=== PATIENT | female | born 1940 | race African-American/Black ===

== ENCOUNTER 2017-06-04 17:49 | Inpatient (IN) | payer MEDICARE, BC ==
[~2017-06-04] VITALS: Ht 165.1 cm; Wt 55.4 kg
[2017-06-04] MEDS ORDERED: FURO20TA4 PO (17:56)
[2017-06-04] MEDS ORDERED: TRAM50TA3 PO (17:56)
[2017-06-04] MEDS ORDERED: ONDANSETRON HCL 4MG/2ML VIAL IV STA (18:13)
[2017-06-04] MEDS ORDERED: SODIUM CHLORIDE 0.9% 1,000 ML IV ONE (18:13)
[2017-06-04] MEDS ORDERED: MORPHINE SULFATE 4 MG/ML CPJ (NOT FOR IM USE) IV STA (18:13)
[2017-06-04] MEDS ORDERED: LORAZEPAM 2MG/ML CPJ IV ONE ×2 (18:45→22:00)
[2017-06-04 18:50] LABS: CLARITY URINE CLEAR (CLEAR); COLOR URINE YELLOW (YELLOW); KETONES URINE NEGATIVE (NEGATIVE); LEUKOCYTE ESTERASE URINE NEGATIVE (NEGATIVE); NITRITE URINE NEGATIVE (NEGATIVE); OCCULT BLOOD URINE TRACE (NEGATIVE); PH URINE 7.5 (4.5-8.0); PROTEIN URINE NEGATIVE (NEGATIVE); SPECIFIC GRAVITY URINE 1.016 (1.005-1.030); UROBILINOGEN URINE 0.2 E.U./dL (0.2-1.0)
[2017-06-04] MEDS: NALOXONE HCL 1 MG/ML 2ML VIAL IV ONE ×2 (18:56→19:12)
[2017-06-04] MEDS ORDERED: ETOMIDATE 2MG/ML 10ML VIAL IV ONE ×3 (19:00→21:45)
[2017-06-04] MEDS ORDERED: SUCCINYLCHOLINE CHLORIDE 200MG/10ML VIAL IV ONE ×2 (19:00→21:00)
[2017-06-04 19:01] LABS: BASOPHILS % 0.5 % (0.0-2.0); EOSINOPHILS % 0.7 % (0.0-5.0); HEMATOCRIT. 37.1 % (36.0-48.0); HEMOGLOBIN. 11.5 g/dL (12.0-16.0); LYMPHOCYTES % 7.7 % (20.0-50.0); MEAN CORPUSCULAR HEMOGLOBIN 28.2 pg (28.0-32.0); MEAN CORPUSCULAR VOLUME 90.4 fL (81.0-99.0); MEAN PLATELET VOLUME 7.9 fl (7.4-10.4); MONOCYTES % 5.8 % (2.0-8.0); NEUTROPHILS % 85.3 % (40.0-76.0); PLATELET 212 x1000/uL (130-400); RED CELL DISTRIBUTION WIDTH 17.4 % (11.6-14.6)
[2017-06-04 19:08] LABS: *AMPHETAMINES SCREEN URINE NEGATIVE (NEGATIVE); *BARBITURATES SCREEN URINE NEGATIVE (NEGATIVE); *BENZODIAZEPINES SCREEN URINE PRESUMTIVE POSITIVE (NEGATIVE); *COCAINE SCREEN URINE NEGATIVE (NEGATIVE); CANNABINOID URINE SCREEN NEGATIVE (NEGATIVE); METHADONE URINE SCREEN NEGATIVE (NEGATIVE); OPIATES URINE SCREEN NEGATIVE (NEGATIVE); PHENCYCLIDINE URINE SCREEN NEGATIVE (NEGATIVE)
[2017-06-04 19:09] LABS: AMMONIA 47 uMol/L (<32)
[2017-06-04 19:12] LABS: CHLORIDE 102 mEq/L (98-107); ETHANOL BLOOD < 10 mg/dL
[2017-06-04 19:16] LABS: TROPONIN I 0.03 ng/mL (0.00-0.04)
[2017-06-04 20:07] LABS: INR 0.9; PROTHROMBIN TIME 9.9 sec (9.4-11.6)
[2017-06-04 20:47] LABS: BG BASE EXCESS 14.8 mmol/L (-2.0-2.0); BG BILEVEL POS AIRWAY PRESSURE 15/5; BG CARBOXYHEMOGLOBIN 0.9 % (0.5-1.5); BG DEOXYHEMOGLOBIN 8.5 % (0.0-5.0); BG FRACTION INSPIRED OXYGEN 50; BG HCO3 ACT 48.5 mmol/L (22.0-26.0); BG METHEMOGLOBIN 0.3 % (0.0-1.5); BG OXYGEN SATURATION 91.4 % (92.0-98.5); BG OXYHEMOGLOBIN 90.3 % (94.0-97.0); BG PCO2 139.4 mmHg (35.0-45.0); BG PH 7.159 (7.350-7.450); BG PO2 73.3 mmHg (75.0-100.0); BG SAMPLE SITE RIGHT RADIAL; BG TOTAL HEMOGLOBIN 11.8 g/dL (12.0-18.0); BG VENT MODE MASK - BIPAP; BG VENT RATE 20 set
[2017-06-04] MEDS ORDERED: PROPOFOL 10MG/ML 100ML 100 ML IV ONE (21:00)
[2017-06-04] MEDS ORDERED: LORAZEPAM 2MG/ML CPJ ONE (21:27)
[2017-06-04 22:09] LABS: BG BASE EXCESS 9.2 mmol/L (-2.0-2.0); BG CARBOXYHEMOGLOBIN 0.6 % (0.5-1.5); BG DEOXYHEMOGLOBIN 4.4 % (0.0-5.0); BG FRACTION INSPIRED OXYGEN 40; BG HCO3 ACT 35.8 mmol/L (22.0-26.0); BG METHEMOGLOBIN 0.2 % (0.0-1.5); BG OXYGEN SATURATION 95.6 % (92.0-98.5); BG OXYHEMOGLOBIN 94.8 % (94.0-97.0); BG PCO2 60.1 mmHg (35.0-45.0); BG PH 7.393 (7.350-7.450); BG PO2 76.3 mmHg (75.0-100.0); BG SAMPLE SITE RIGHT RADIAL; BG TIDAL VOLUME(mL) 500 mL; BG TOTAL HEMOGLOBIN 10.8 g/dL (12.0-18.0); BG VENT MODE VENT - A/C; BG VENT RATE 16 set
[2017-06-04] MEDS ORDERED: MORPHINE SULFATE 4 MG/ML CPJ (NOT FOR IM USE) IV PRN (22:15)
[2017-06-04] MEDS ORDERED: CLONIDINE 0.1MG TABLET PO PRN (22:15)
[2017-06-04] MEDS ORDERED: NA PHOS,M-B/NA PHOS,DI-BA ENEMA 118ML PR PRN (22:15)
[2017-06-04] MEDS ORDERED: ONDANSETRON HCL 4MG/2ML VIAL IV PRN (22:15)
[2017-06-04] MEDS ORDERED: GUAIFENESIN 200MG/10ML SUGAR FREE UDC PO PRN (22:15)
[2017-06-04] MEDS ORDERED: IPRATROPIUM/ALBUTEROL 0.5-3(2.5)MG/3ML NEB INH PRN (22:15)
[2017-06-04] MEDS ORDERED: DOCUSATE SODIUM 100MG CAPSULE PO PRN (22:15)
[2017-06-04] MEDS ORDERED: ACETAMINOPHEN 325MG TABLET PO PRN (22:15)
[2017-06-04] MEDS ORDERED: MAGNESIUM/ALUMINUM HYDROXIDE/SIMETHICONE 30ML UDC PO PRN (22:15)
[2017-06-04] MEDS ORDERED: MIDAZOLAM HCL 50 MG in DEXTROSE 5% WATER 40 ML IV PRN (22:15)
[2017-06-04] MEDS ORDERED: DEXTROSE 50% WATER 50ML SYRINGE IV PRN (22:30)
[2017-06-05] VITALS (34 sets, daily range): BP systolic 133–169; BP diastolic 65–93
[2017-06-05] MEDS: DEXT 5%/0.45% NACL 1000ML 1,000 ML IV SCH ×3 (02:09→23:53)
[2017-06-05] MEDS: MIDAZOLAM HCL 50 MG in DEXTROSE 5% WATER 40 ML IV PRN ×3 (02:10→14:46)
[2017-06-05] MEDS: LEVOFLOXACIN 500MG PREMIX 100 ML IV SCH (03:02)
[2017-06-05] MEDS: IPRATROPIUM/ALBUTEROL 0.5-3(2.5)MG/3ML NEB HHN SCH ×4 (04:53→20:37)
[2017-06-05] MEDS: BLOOD SUGAR DIAGNOSTIC STRIP TEST SCH ×4 (05:50→23:55)
[2017-06-05] MEDS: INSULIN LISPRO 100 UNITS/ML SUBCUT SCH ×4 (05:50→23:55)
[2017-06-05] MEDS ORDERED: METHYLPREDNISOLONE SOD SUCC 125 MG/2 ML VIAL IV SCH (06:00)
[2017-06-05 06:11] LABS: BASOPHILS % 0.4 % (0.0-2.0); EOSINOPHILS % 0.1 % (0.0-5.0); HEMATOCRIT. 28.8 % (36.0-48.0); LYMPHOCYTES % 10.1 % (20.0-50.0); MEAN CORPUSCULAR HEMOGLOBIN 28.1 pg (28.0-32.0); MEAN CORPUSCULAR VOLUME 90.2 fL (81.0-99.0); MEAN PLATELET VOLUME 8.3 fl (7.4-10.4); MONOCYTES % 9.9 % (2.0-8.0); NEUTROPHILS % 79.5 % (40.0-76.0); PLATELET 161 x1000/uL (130-400)
[2017-06-05 06:18] LABS: CHLORIDE 105 mEq/L (98-107); PHOSPHORUS 2.2 mg/dL (2.5-4.9)
[2017-06-05] MEDS ORDERED: BLOOD SUGAR DIAGNOSTIC STRIP TEST SCH (07:50)
[2017-06-05 08:29] LABS: BG BASE EXCESS 7.2 mmol/L (-2.0-2.0); BG CARBOXYHEMOGLOBIN 0.3 % (0.5-1.5); BG DEOXYHEMOGLOBIN 3.4 % (0.0-5.0); BG FRACTION INSPIRED OXYGEN 40; BG HCO3 ACT 32.5 mmol/L (22.0-26.0); BG METHEMOGLOBIN 0.3 % (0.0-1.5); BG OXYGEN SATURATION 96.6 % (92.0-98.5); BG PCO2 49.8 mmHg (35.0-45.0); BG PH 7.432 (7.350-7.450); BG PO2 87.3 mmHg (75.0-100.0); BG SAMPLE SITE LEFT RADIAL; BG TIDAL VOLUME(mL) 500 mL; BG TOTAL HEMOGLOBIN 9.4 g/dL (12.0-18.0); BG VENT MODE VENT - A/C; BG VENT RATE 16 set
[2017-06-05] MEDS ORDERED: IPRATROPIUM/ALBUTEROL 0.5-3(2.5)MG/3ML NEB HHN PRN (09:00)
[2017-06-05] MEDS ORDERED: ENOXAPARIN 40MG/0.4ML SYR SUBCUT SCH (09:00)
[2017-06-05] MEDS ORDERED: FAMOTIDINE 20MG/2ML VIAL IV SCH (09:00)
[2017-06-05] MEDS: METOPROLOL TARTRATE 25MG TABLET PO SCH ×2 (09:08→20:32)
[2017-06-05] MEDS ORDERED: IOHEXOL-350 100 ML BOTTLE ONE (11:35)
[2017-06-05] MEDS: LORAZEPAM 2MG/ML CPJ IV PRN (12:12)
[2017-06-05] MEDS: FENTANYL CITRATE/PF 500 MCG in SODIUM CHLORIDE 0.9% 40 ML IV PRN ×2 (12:16→19:57)
[2017-06-05 12:40] LABS: PARTIAL THROMBOPLASTIN TIME 28.2 sec (23.4-31.0); PROTHROMBIN TIME 10.7 sec (9.4-11.6)
[2017-06-05] MEDS: PANTOPRAZOLE SODIUM 40 MG/VIAL IV SCH (12:45)
[2017-06-05 12:47] LABS: CREATINE KINASE MB FRACTION 0.5 ng/mL (0.5-3.6); TROPONIN I 0.02 ng/mL (0.00-0.04)
[2017-06-05] MEDS: BUDESONIDE 0.5MG/2ML NEB HHN SCH ×2 (14:41→20:37)
[2017-06-05] MEDS ORDERED: POTASSIUM PHOS,M-BASIC-D-BASIC 10 MMOL in DEXT 5% WATER 246.6667 ML IV NR (18:30)
[2017-06-05] MEDS: DIPHENHYDRAMINE 50MG/ML VIAL IV PRN (19:56)
[2017-06-06] VITALS (41 sets, daily range): BP systolic 85–159; BP diastolic 46–91
[2017-06-06] MEDS: DIPHENHYDRAMINE 50MG/ML VIAL IV PRN (02:00)
[2017-06-06] MEDS: IPRATROPIUM/ALBUTEROL 0.5-3(2.5)MG/3ML NEB HHN SCH ×4 (02:09→20:26)
[2017-06-06] MEDS: LORAZEPAM 2MG/ML CPJ IV PRN ×2 (03:36→13:54)
[2017-06-06] MEDS: LEVOFLOXACIN 500MG PREMIX 100 ML IV SCH (04:38)
[2017-06-06] MEDS: FENTANYL CITRATE/PF 500 MCG in SODIUM CHLORIDE 0.9% 40 ML IV PRN ×3 (04:38→21:00)
[2017-06-06] MEDS: MIDAZOLAM HCL 50 MG in DEXTROSE 5% WATER 40 ML IV PRN ×3 (04:39→20:57)
[2017-06-06] MEDS: INSULIN LISPRO 100 UNITS/ML SUBCUT SCH ×3 (06:03→17:29)
[2017-06-06] MEDS: BLOOD SUGAR DIAGNOSTIC STRIP TEST SCH ×3 (06:05→17:30)
[2017-06-06 06:10] LABS: BASOPHILS % 0.8 % (0.0-2.0); EOSINOPHILS % 0.5 % (0.0-5.0); HEMOGLOBIN. 8.4 g/dL (12.0-16.0); LYMPHOCYTES % 17.2 % (20.0-50.0); MEAN CORPUSCULAR HEMOGLOBIN 28.7 pg (28.0-32.0); MEAN CORPUSCULAR VOLUME 88.7 fL (81.0-99.0); MEAN PLATELET VOLUME 8.3 fl (7.4-10.4); MONOCYTES % 10.4 % (2.0-8.0); NEUTROPHILS % 71.1 % (40.0-76.0); PLATELET 152 x1000/uL (130-400); RED BLOOD CELL COUNT 2.93 mill/uL (4.2-5.4); RED CELL DISTRIBUTION WIDTH 17.1 % (11.6-14.6)
[2017-06-06 06:16] LABS: CHLORIDE 100 mEq/L (98-107)
[2017-06-06] MEDS: BUDESONIDE 0.5MG/2ML NEB HHN SCH ×2 (08:14→20:28)
[2017-06-06 08:23] LABS: BG BASE EXCESS 7.3 mmol/L (-2.0-2.0); BG CARBOXYHEMOGLOBIN 0.5 % (0.5-1.5); BG DEOXYHEMOGLOBIN 2.8 % (0.0-5.0); BG FRACTION INSPIRED OXYGEN 40; BG HCO3 ACT 32.7 mmol/L (22.0-26.0); BG METHEMOGLOBIN 0.3 % (0.0-1.5); BG OXYGEN SATURATION 97.2 % (92.0-98.5); BG OXYHEMOGLOBIN 96.4 % (94.0-97.0); BG PCO2 51.6 mmHg (35.0-45.0); BG PO2 98.7 mmHg (75.0-100.0); BG SAMPLE SITE LEFT RADIAL; BG TIDAL VOLUME(mL) 500 mL; BG TOTAL HEMOGLOBIN 8.7 g/dL (12.0-18.0); BG VENT MODE VENT - A/C; BG VENT RATE 14 set
[2017-06-06] MEDS: PANTOPRAZOLE SODIUM 40 MG/VIAL IV SCH (09:46)
[2017-06-06] MEDS: METOPROLOL TARTRATE 25MG TABLET PO SCH (09:55)
[2017-06-06] MEDS: DEXT 5%/0.45% NACL 1000ML 1,000 ML IV SCH ×2 (09:56→18:00)
[2017-06-06] MEDS ORDERED: KCL 20MEQ/100ML PREMIX 100 ML IV NR (10:00)
[2017-06-06] MEDS ORDERED: POTASSIUM CHLORIDE 20MEQ/PACKET PO NR (10:30)
[2017-06-06] MEDS: ENOXAPARIN 40MG/0.4ML SYR SUBCUT SCH (12:47)
[2017-06-06] MEDS ORDERED: INSULIN GLARGINE UD 100 UNITS/ML SYR SUBCUT SCH (13:00)
[2017-06-06 16:17] LABS: T4 FREE 0.82 ng/dL (0.76-1.46)
[2017-06-06] MEDS: DILTIAZEM HCL 30MG TABLET PO SCH (17:30)
[2017-06-06] MEDS ORDERED: ACETAMINOPHEN 650MG/20.3ML UDC ONE (21:18)
[2017-06-07] VITALS (43 sets, daily range): BP systolic 98–132; BP diastolic 46–81
[2017-06-07] MEDS: BLOOD SUGAR DIAGNOSTIC STRIP TEST SCH ×4 (00:14→18:00)
[2017-06-07] MEDS: INSULIN LISPRO 100 UNITS/ML SUBCUT SCH ×4 (00:19→18:59)
[2017-06-07] MEDS: DILTIAZEM HCL 30MG TABLET PO SCH ×5 (00:20→23:59)
[2017-06-07] MEDS: IPRATROPIUM/ALBUTEROL 0.5-3(2.5)MG/3ML NEB HHN SCH ×4 (01:47→20:30)
[2017-06-07] MEDS: FENTANYL CITRATE/PF 500 MCG in SODIUM CHLORIDE 0.9% 40 ML IV PRN (03:15)
[2017-06-07] MEDS: MIDAZOLAM HCL 50 MG in DEXTROSE 5% WATER 40 ML IV PRN (03:15)
[2017-06-07] MEDS: DEXT 5%/0.45% NACL 1000ML 1,000 ML IV SCH ×2 (04:51→23:15)
[2017-06-07 05:32] LABS: BASOPHILS % 0.8 % (0.0-2.0); EOSINOPHILS % 0.9 % (0.0-5.0); HEMATOCRIT. 26.2 % (36.0-48.0); HEMOGLOBIN. 8.3 g/dL (12.0-16.0); LYMPHOCYTES % 9.8 % (20.0-50.0); MEAN CORPUSCULAR HEMOGLOBIN 28.3 pg (28.0-32.0); MEAN CORPUSCULAR VOLUME 89.2 fL (81.0-99.0); MEAN PLATELET VOLUME 8.2 fl (7.4-10.4); MONOCYTES % 13.2 % (2.0-8.0); NEUTROPHILS % 75.3 % (40.0-76.0); PLATELET 141 x1000/uL (130-400); RED BLOOD CELL COUNT 2.94 mill/uL (4.2-5.4); RED CELL DISTRIBUTION WIDTH 17.5 % (11.6-14.6)
[2017-06-07] MEDS ORDERED: SODIUM CHLORIDE 0.9% IV PRN (06:00)
[2017-06-07] MEDS ORDERED: FENTANYL CITRATE IV PRN (06:00)
[2017-06-07] MEDS ORDERED: FENTANYL CITRATE/PF 1,000 MCG in SODIUM CHLORIDE 0.9% 80 ML IV PRN (06:00)
[2017-06-07] MEDS ORDERED: MIDAZOLAM HCL 50 MG in SODIUM CHLORIDE 0.9% 90 ML IV PRN (06:00)
[2017-06-07] MEDS ORDERED: MIDAZOLAM HCL 100 MG in SODIUM CHLORIDE 0.9% 80 ML IV PRN (06:00)
[2017-06-07] MEDS: LEVOFLOXACIN 250MG PREMIX 50 ML IV SCH (06:04)
[2017-06-07] MEDS: ACETAMINOPHEN 650MG/20.3ML UDC GT PRN ×3 (06:34→16:43)
[2017-06-07 07:55] LABS: BG BASE EXCESS 6.3 mmol/L (-2.0-2.0); BG CARBOXYHEMOGLOBIN 0.9 % (0.5-1.5); BG DEOXYHEMOGLOBIN 3.5 % (0.0-5.0); BG FRACTION INSPIRED OXYGEN 40; BG HCO3 ACT 32.2 mmol/L (22.0-26.0); BG METHEMOGLOBIN 0.4 % (0.0-1.5); BG OXYGEN SATURATION 96.5 % (92.0-98.5); BG OXYHEMOGLOBIN 95.2 % (94.0-97.0); BG PCO2 53.6 mmHg (35.0-45.0); BG PH 7.396 (7.350-7.450); BG SAMPLE SITE LEFT RADIAL; BG TIDAL VOLUME(mL) 500 mL; BG TOTAL HEMOGLOBIN 9.3 g/dL (12.0-18.0); BG VENT MODE VENT - A/C; BG VENT RATE 14 set
[2017-06-07] MEDS: BUDESONIDE 0.5MG/2ML NEB HHN SCH ×2 (07:58→20:30)
[2017-06-07] MEDS: PANTOPRAZOLE SODIUM 40 MG/VIAL IV SCH (08:58)
[2017-06-07] MEDS: MIDAZOLAM HCL 100 MG in SODIUM CHLORIDE 0.9% 80 ML IV PRN ×2 (09:25→23:38)
[2017-06-07] MEDS: INSULIN GLARGINE UD 100 UNITS/ML SYR SUBCUT SCH (09:34)
[2017-06-07 09:45] LABS: CHLORIDE 98 mEq/L (98-107); PHOSPHORUS 3.2 mg/dL (2.5-4.9); TROPONIN I 0.02 ng/mL (0.00-0.04)
[2017-06-07] MEDS: ENOXAPARIN 40MG/0.4ML SYR SUBCUT SCH (12:08)
[2017-06-07 12:26] LABS: AMMONIA 28 uMol/L (<32)
[2017-06-07] MEDS: FENTANYL CITRATE/PF 1,000 MCG in SODIUM CHLORIDE 0.9% 80 ML IV PRN (16:43)
[2017-06-08] VITALS (45 sets, daily range): BP systolic 94–144; BP diastolic 18–93
[2017-06-08] MEDS: DEXT 5%/0.45% NACL 1000ML 1,000 ML IV SCH ×3 (00:03→17:50)
[2017-06-08] MEDS: INSULIN LISPRO 100 UNITS/ML SUBCUT SCH ×4 (00:08→17:55)
[2017-06-08] MEDS: ACETAMINOPHEN 650MG/20.3ML UDC GT PRN ×4 (00:12→17:51)
[2017-06-08] MEDS: LORAZEPAM 2MG/ML CPJ IV PRN (01:23)
[2017-06-08] MEDS: IPRATROPIUM/ALBUTEROL 0.5-3(2.5)MG/3ML NEB HHN SCH ×4 (03:09→20:22)
[2017-06-08] MEDS: FENTANYL CITRATE/PF 1,000 MCG in SODIUM CHLORIDE 0.9% 80 ML IV PRN ×2 (04:02→12:47)
[2017-06-08] MEDS: BLOOD SUGAR DIAGNOSTIC STRIP TEST SCH ×4 (06:00→17:30)
[2017-06-08] MEDS: DILTIAZEM HCL 30MG TABLET PO SCH ×3 (06:00→17:55)
[2017-06-08] MEDS: LEVOFLOXACIN 250MG PREMIX 50 ML IV SCH (06:16)
[2017-06-08] MEDS: PANTOPRAZOLE SODIUM 40 MG/VIAL IV SCH (08:19)
[2017-06-08] MEDS: BUDESONIDE 0.5MG/2ML NEB HHN SCH (08:34)
[2017-06-08] MEDS: MIDAZOLAM HCL 100 MG in SODIUM CHLORIDE 0.9% 80 ML IV PRN ×2 (09:57→18:21)
[2017-06-08 10:10] LABS: BG BASE EXCESS 4.4 mmol/L (-2.0-2.0); BG CARBOXYHEMOGLOBIN 1.1 % (0.5-1.5); BG FRACTION INSPIRED OXYGEN 40; BG METHEMOGLOBIN 0.2 % (0.0-1.5); BG OXYGEN SATURATION 95.9 % (92.0-98.5); BG OXYHEMOGLOBIN 94.7 % (94.0-97.0); BG PCO2 51.4 mmHg (35.0-45.0); BG PH 7.384 (7.350-7.450); BG PO2 88.4 mmHg (75.0-100.0); BG SAMPLE SITE RIGHT BRACHIAL; BG TIDAL VOLUME(mL) 500 mL; BG TOTAL HEMOGLOBIN 7.8 g/dL (12.0-18.0); BG VENT MODE VENT - A/C; BG VENT RATE 14 set
[2017-06-08] MEDS: INSULIN GLARGINE UD 100 UNITS/ML SYR SUBCUT SCH (10:33)
[2017-06-08 10:43] LABS: BASOPHILS % 0.4 % (0.0-2.0); EOSINOPHILS % 0.4 % (0.0-5.0); HEMATOCRIT. 22.8 % (36.0-48.0); HEMOGLOBIN. 7.1 g/dL (12.0-16.0); LYMPHOCYTES % 7.1 % (20.0-50.0); MEAN CORPUSCULAR HEMOGLOBIN 27.8 pg (28.0-32.0); MEAN PLATELET VOLUME 8.6 fl (7.4-10.4); MONOCYTES % 8.3 % (2.0-8.0); NEUTROPHILS % 83.8 % (40.0-76.0); PLATELET 154 x1000/uL (130-400); RED BLOOD CELL COUNT 2.56 mill/uL (4.2-5.4); RED CELL DISTRIBUTION WIDTH 16.9 % (11.6-14.6)
[2017-06-08 11:30] LABS: CHLORIDE 98 mEq/L (98-107)
[2017-06-08] MEDS: LACTULOSE 20G/30ML UDC PO SCH ×2 (12:16→22:44)
[2017-06-08] MEDS: ENOXAPARIN 40MG/0.4ML SYR SUBCUT SCH (12:17)
[2017-06-08 15:00] LABS: KETONES URINE NEGATIVE (NEGATIVE); LEUKOCYTE ESTERASE URINE 3+ (NEGATIVE); NITRITE URINE NEGATIVE (NEGATIVE); OCCULT BLOOD URINE 3+ (NEGATIVE); PROTEIN URINE 1+ (NEGATIVE); SPECIFIC GRAVITY URINE 1.025 (1.005-1.030)
[2017-06-08] MEDS ORDERED: VANCOMYCIN 1250MG in DEXTROSE 5% WATER 250ML IV SCH (15:00)
[2017-06-08 15:12] LABS: CLARITY URINE CLOUDY (CLEAR); COLOR URINE YELLOW (YELLOW)
[2017-06-08] MEDS: METRONIDAZOLE 500MG TABLET PO SCH ×2 (16:23→22:43)
[2017-06-08 17:23] LABS: CREATINE KINASE 316 IU/L (26-192)
[2017-06-09] VITALS (58 sets, daily range): BP systolic 97–152; BP diastolic 24–89
[2017-06-09] MEDS: BLOOD SUGAR DIAGNOSTIC STRIP TEST SCH ×5 (00:47→23:28)
[2017-06-09] MEDS: INSULIN LISPRO 100 UNITS/ML SUBCUT SCH ×5 (00:54→23:28)
[2017-06-09] MEDS: DILTIAZEM HCL 30MG TABLET PO SCH ×5 (00:59→21:32)
[2017-06-09] MEDS: ACETAMINOPHEN 650MG/20.3ML UDC GT PRN ×3 (01:12→20:21)
[2017-06-09] MEDS: IPRATROPIUM/ALBUTEROL 0.5-3(2.5)MG/3ML NEB HHN SCH ×4 (02:06→20:40)
[2017-06-09] MEDS: VANCOMYCIN 750 MG PREMIX 150 ML IV SCH ×2 (03:00→18:51)
[2017-06-09] MEDS: FENTANYL CITRATE/PF 1,000 MCG in SODIUM CHLORIDE 0.9% 80 ML IV PRN (04:35)
[2017-06-09] MEDS: DEXT 5%/0.45% NACL 1000ML 1,000 ML IV SCH ×3 (04:51→22:34)
[2017-06-09 05:48] LABS: MEAN CORPUSCULAR HEMOGLOBIN 28.1 pg (28.0-32.0); MEAN CORPUSCULAR VOLUME 88.5 fL (81.0-99.0); MEAN PLATELET VOLUME 8.2 fl (7.4-10.4); PLATELET 167 x1000/uL (130-400); RED BLOOD CELL COUNT 2.32 mill/uL (4.2-5.4); RED CELL DISTRIBUTION WIDTH 17.3 % (11.6-14.6)
[2017-06-09 05:50] LABS: PARTIAL THROMBOPLASTIN TIME 38.5 sec (23.4-31.0); PROTHROMBIN TIME 10.3 sec (9.4-11.6)
[2017-06-09 06:02] LABS: HEMATOCRIT. 20.5 % (36.0-48.0); HEMOGLOBIN. 6.5 g/dL (12.0-16.0)
[2017-06-09 06:20] LABS: CHLORIDE 96 mEq/L (98-107)
[2017-06-09] MEDS: LACTULOSE 20G/30ML UDC PO SCH ×3 (06:54→21:38)
[2017-06-09] MEDS: LEVOFLOXACIN 250MG PREMIX 50 ML IV SCH (06:55)
[2017-06-09 08:07] LABS: PLATELET ESTIMATE NORMAL
[2017-06-09] MEDS: METRONIDAZOLE 500MG TABLET PO SCH ×2 (09:07→20:21)
[2017-06-09] MEDS: PANTOPRAZOLE SODIUM 40 MG/VIAL IV SCH (09:07)
[2017-06-09] MEDS: MIDAZOLAM HCL 100 MG in SODIUM CHLORIDE 0.9% 80 ML IV PRN (09:08)
[2017-06-09 09:57] LABS: BG BASE EXCESS 7.8 mmol/L (-2.0-2.0); BG DEOXYHEMOGLOBIN 5.2 % (0.0-5.0); BG FRACTION INSPIRED OXYGEN 40; BG HCO3 ACT 33.9 mmol/L (22.0-26.0); BG METHEMOGLOBIN 0.5 % (0.0-1.5); BG OXYGEN SATURATION 94.7 % (92.0-98.5); BG OXYHEMOGLOBIN 93.3 % (94.0-97.0); BG PCO2 58.3 mmHg (35.0-45.0); BG PH 7.382 (7.350-7.450); BG SAMPLE SITE RIGHT RADIAL; BG TIDAL VOLUME(mL) 500 mL; BG TOTAL HEMOGLOBIN 7.7 g/dL (12.0-18.0); BG VENT MODE VENT - A/C; BG VENT RATE 14 set
[2017-06-09] MEDS: INSULIN GLARGINE UD 100 UNITS/ML SYR SUBCUT SCH (11:06)
[2017-06-09] MEDS ORDERED: VANCOMYCIN HCL 500 MG/VIAL ONE (16:25)
[2017-06-09 17:39] LABS: HEMATOCRIT 31.3 % (36.0-48.0); HEMOGLOBIN 10.2 g/dL (12.0-16.0)
[2017-06-09] MEDS ORDERED: ALBUMIN HUMAN 12.5G/250ML (5%) IV ONE (18:00)
[2017-06-09] MEDS ORDERED: BACITRACIN ZINC 15GM TUBE TOP ONE (18:10)
[2017-06-09] MEDS ORDERED: BUPIVACAINE HCL 0.5% (5MG/ML) 50ML ONE (18:39)
[2017-06-09] MEDS ORDERED: SKIN ADHESIVE 0.7 GM EA TOP ONE (18:39)
[2017-06-09 19:32] LABS: FOLIC ACID (FOLATE) SERUM 9.9 ng/mL (>5.38)
[2017-06-10] VITALS (64 sets, daily range): BP systolic 80–149; BP diastolic 40–122
[2017-06-10] MEDS: DILTIAZEM HCL 30MG TABLET PO SCH ×4 (00:34→17:56)
[2017-06-10] MEDS: FENTANYL CITRATE/PF 1,000 MCG in SODIUM CHLORIDE 0.9% 80 ML IV PRN ×2 (01:41→20:23)
[2017-06-10] MEDS: MIDAZOLAM HCL 100 MG in SODIUM CHLORIDE 0.9% 80 ML IV PRN ×2 (02:09→17:56)
[2017-06-10] MEDS: VANCOMYCIN 750 MG PREMIX 150 ML IV SCH (02:24)
[2017-06-10] MEDS: BLOOD SUGAR DIAGNOSTIC STRIP TEST SCH ×4 (05:27→23:49)
[2017-06-10] MEDS: INSULIN LISPRO 100 UNITS/ML SUBCUT SCH ×3 (05:33→18:00)
[2017-06-10] MEDS: LACTULOSE 20G/30ML UDC PO SCH ×3 (05:35→22:28)
[2017-06-10] MEDS: LEVOFLOXACIN 250MG PREMIX 50 ML IV SCH (05:35)
[2017-06-10 05:38] LABS: HEMATOCRIT. 29.4 % (36.0-48.0); MEAN CORPUSCULAR HEMOGLOBIN 28.9 pg (28.0-32.0); MEAN CORPUSCULAR VOLUME 91.5 fL (81.0-99.0); MEAN PLATELET VOLUME 7.9 fl (7.4-10.4); PLATELET 140 x1000/uL (130-400); RED BLOOD CELL COUNT 3.21 mill/uL (4.2-5.4); RED CELL DISTRIBUTION WIDTH 16.8 % (11.6-14.6)
[2017-06-10 06:15] LABS: CHLORIDE 98 mEq/L (98-107)
[2017-06-10 06:17] LABS: HEMOGLOBIN. 9.3 g/dL (12.0-16.0)
[2017-06-10] MEDS: IPRATROPIUM/ALBUTEROL 0.5-3(2.5)MG/3ML NEB HHN SCH ×3 (08:21→20:22)
[2017-06-10] MEDS: METRONIDAZOLE 500MG TABLET PO SCH ×2 (09:09→22:28)
[2017-06-10] MEDS: PANTOPRAZOLE SODIUM 40 MG/VIAL IV SCH (09:09)
[2017-06-10] MEDS: ACETAMINOPHEN 650MG/20.3ML UDC GT PRN ×2 (09:09→22:28)
[2017-06-10] MEDS: INSULIN GLARGINE UD 100 UNITS/ML SYR SUBCUT SCH (09:53)
[2017-06-10] MEDS: VANCOMYCIN 1 G PREMIX 200 ML IV SCH ×2 (11:18→20:20)
[2017-06-10] MEDS ORDERED: LIDOCAINE HCL 1% 20ML VIAL (Pyxis) INJ ONE (11:40)
[2017-06-10 11:45] LABS: PLATELET ESTIMATE NORMAL
[2017-06-10] MEDS ORDERED: AMIKACIN 500MG in SODIUM CHLORIDE 0.9% 100ML IV SCH (17:00)
[2017-06-10 20:51] LABS: TOTAL IRON BINDING CAPACITY 332 ug/dL (250-450)
[2017-06-10] MEDS: IRON SUCROSE COMPLEX 100 MG/5 ML ML IV SCH (23:25)
[2017-06-11] VITALS (86 sets, daily range): BP systolic 81–127; BP diastolic 45–75
[2017-06-11] MEDS: INSULIN LISPRO 100 UNITS/ML SUBCUT SCH ×6 (00:17→23:32)
[2017-06-11] MEDS: IPRATROPIUM/ALBUTEROL 0.5-3(2.5)MG/3ML NEB HHN SCH ×4 (01:41→20:35)
[2017-06-11] MEDS: VANCOMYCIN 1 G PREMIX 200 ML IV SCH ×3 (02:48→18:54)
[2017-06-11] MEDS: MIDAZOLAM HCL 100 MG in SODIUM CHLORIDE 0.9% 80 ML IV PRN (05:43)
[2017-06-11 05:44] LABS: HEMATOCRIT. 27.2 % (36.0-48.0); HEMOGLOBIN. 8.6 g/dL (12.0-16.0); MEAN CORPUSCULAR HEMOGLOBIN 28.4 pg (28.0-32.0); MEAN CORPUSCULAR VOLUME 89.6 fL (81.0-99.0); MEAN PLATELET VOLUME 7.8 fl (7.4-10.4); PLATELET 276 x1000/uL (130-400); RED BLOOD CELL COUNT 3.04 mill/uL (4.2-5.4); RED CELL DISTRIBUTION WIDTH 16.8 % (11.6-14.6)
[2017-06-11 05:49] LABS: CHLORIDE 98 mEq/L (98-107)
[2017-06-11] MEDS: BLOOD SUGAR DIAGNOSTIC STRIP TEST SCH ×4 (06:00→23:23)
[2017-06-11] MEDS: DILTIAZEM HCL 30MG TABLET PO SCH ×4 (06:00→23:04)
[2017-06-11] MEDS: LACTULOSE 20G/30ML UDC PO SCH ×3 (06:00→21:29)
[2017-06-11] MEDS: ACETAMINOPHEN 650MG/20.3ML UDC GT PRN (06:16)
[2017-06-11] MEDS ORDERED: POTASSIUM CHLORIDE INJ 40 MEQ in DEXT 5% WATER 250 ML IV NR (08:00)
[2017-06-11] MEDS: METRONIDAZOLE 500MG TABLET PO SCH ×2 (09:00→20:22)
[2017-06-11 09:50] LABS: PLATELET ESTIMATE NORMAL
[2017-06-11] MEDS: DEXT 5%/0.45% NACL KCL 10MEQ/L 1,000 ML IV SCH (10:08)
[2017-06-11] MEDS: PANTOPRAZOLE SODIUM 40 MG/VIAL IV SCH (10:11)
[2017-06-11] MEDS: INSULIN GLARGINE UD 100 UNITS/ML SYR SUBCUT SCH (10:44)
[2017-06-11] MEDS: NYSTATIN 100,000 UNITS/ML 5ML UDC SSP SCH ×3 (16:28→23:30)
[2017-06-11] MEDS: AMIKACIN 500MG in SODIUM CHLORIDE 0.9% 100ML IV SCH ×2 (17:00→17:07)
[2017-06-11] MEDS: PROPOFOL 10MG/ML 100ML 100 ML IV PRN (19:38)
[2017-06-11] MEDS: IRON SUCROSE COMPLEX 100 MG/5 ML ML IV SCH (20:57)
[2017-06-12] VITALS (69 sets, daily range): BP systolic 71–145; BP diastolic 33–89
[2017-06-12] MEDS: IPRATROPIUM/ALBUTEROL 0.5-3(2.5)MG/3ML NEB HHN SCH ×4 (02:11→20:36)
[2017-06-12] MEDS: VANCOMYCIN 1 G PREMIX 200 ML IV SCH ×3 (02:42→17:47)
[2017-06-12] MEDS: DEXT 5%/0.45% NACL KCL 10MEQ/L 1,000 ML IV SCH (05:00)
[2017-06-12] MEDS: DILTIAZEM HCL 30MG TABLET PO SCH (05:14)
[2017-06-12] MEDS: BLOOD SUGAR DIAGNOSTIC STRIP TEST SCH ×3 (05:14→17:50)
[2017-06-12] MEDS: LACTULOSE 20G/30ML UDC PO SCH ×3 (05:14→21:09)
[2017-06-12] MEDS: NYSTATIN 100,000 UNITS/ML 5ML UDC SSP SCH ×3 (05:20→17:53)
[2017-06-12] MEDS: INSULIN LISPRO 100 UNITS/ML SUBCUT SCH ×4 (05:21→23:37)
[2017-06-12] MEDS: PANTOPRAZOLE SODIUM 40 MG/VIAL IV SCH (08:05)
[2017-06-12] MEDS: PROPOFOL 10MG/ML 100ML 100 ML IV PRN (08:05)
[2017-06-12] MEDS: METRONIDAZOLE 500MG TABLET PO SCH ×2 (09:00→21:00)
[2017-06-12 09:04] LABS: HEMATOCRIT. 27.9 % (36.0-48.0); HEMOGLOBIN. 8.8 g/dL (12.0-16.0); MEAN CORPUSCULAR HEMOGLOBIN 28.1 pg (28.0-32.0); MEAN CORPUSCULAR VOLUME 89.1 fL (81.0-99.0); MEAN PLATELET VOLUME 7.4 fl (7.4-10.4); PLATELET 350 x1000/uL (130-400); RED BLOOD CELL COUNT 3.13 mill/uL (4.2-5.4); RED CELL DISTRIBUTION WIDTH 16.9 % (11.6-14.6)
[2017-06-12 09:16] LABS: CHLORIDE 99 mEq/L (98-107)
[2017-06-12 09:36] LABS: PLATELET ESTIMATE NORMAL
[2017-06-12 09:37] LABS: BG BASE EXCESS 5.2 mmol/L (-2.0-2.0); BG CARBOXYHEMOGLOBIN 0.4 % (0.5-1.5); BG HCO3 ACT 31.3 mmol/L (22.0-26.0); BG METHEMOGLOBIN 0.3 % (0.0-1.5); BG OXYHEMOGLOBIN 94.3 % (94.0-97.0); BG PCO2 55.2 mmHg (35.0-45.0); BG PH 7.372 (7.350-7.450); BG PO2 76.9 mmHg (75.0-100.0); BG SAMPLE SITE RIGHT BRACHIAL; BG TIDAL VOLUME(mL) 500 mL; BG TOTAL HEMOGLOBIN 9.3 g/dL (12.0-18.0); BG VENT MODE VENT - SIMV; BG VENT RATE 10 set
[2017-06-12] MEDS: INSULIN GLARGINE UD 100 UNITS/ML SYR SUBCUT SCH (10:05)
[2017-06-12] MEDS ORDERED: SODIUM CHLORIDE 0.9% 250 ML IV SCH (12:35)
[2017-06-12] MEDS: ENOXAPARIN 40MG/0.4ML SYR SUBCUT SCH (13:21)
[2017-06-12] MEDS ORDERED: SODIUM CHLORIDE 0.9% 500 ML IV SCH (15:15)
[2017-06-12] MEDS: FENTANYL CITRATE/PF 500 MCG in SODIUM CHLORIDE 0.9% 40 ML IV PRN ×2 (15:19→20:47)
[2017-06-12] MEDS: DEXT 5%/0.9% NACL KCL 20MEQ/L 1,000 ML IV SCH (16:49)
[2017-06-12] MEDS: AMIKACIN 500MG in SODIUM CHLORIDE 0.9% 100ML IV SCH (17:02)
[2017-06-12] MEDS ORDERED: MIDAZOLAM HCL 50 MG in DEXTROSE 5% WATER 40 ML IV PRN (19:00)
[2017-06-12] MEDS ORDERED: ACETAMINOPHEN 650MG SUPP PR NR (20:15)
[2017-06-12] MEDS ORDERED: ACETAMINOPHEN 650MG SUPP PR PRN (20:27)
[2017-06-13] VITALS (59 sets, daily range): BP systolic 76–138; BP diastolic 20–69
[2017-06-13] MEDS: FENTANYL CITRATE/PF 1,000 MCG in SODIUM CHLORIDE 0.9% 80 ML IV PRN ×2 (00:02→17:17)
[2017-06-13] MEDS: NYSTATIN 100,000 UNITS/ML 5ML UDC SSP SCH ×4 (00:28→17:18)
[2017-06-13] MEDS: DEXT 5%/0.9% NACL KCL 20MEQ/L 1,000 ML IV SCH ×4 (02:33→20:44)
[2017-06-13] MEDS: IPRATROPIUM/ALBUTEROL 0.5-3(2.5)MG/3ML NEB HHN SCH ×4 (02:42→19:54)
[2017-06-13] MEDS: INSULIN LISPRO 100 UNITS/ML SUBCUT SCH ×3 (05:01→17:15)
[2017-06-13] MEDS: AMIKACIN 500MG in SODIUM CHLORIDE 0.9% 100ML IV SCH (05:01)
[2017-06-13] MEDS: BLOOD SUGAR DIAGNOSTIC STRIP TEST SCH ×4 (05:02→17:15)
[2017-06-13] MEDS: LACTULOSE 20G/30ML UDC PO SCH (05:02)
[2017-06-13] MEDS: VANCOMYCIN 1 G PREMIX 200 ML IV SCH (05:02)
[2017-06-13 06:02] LABS: HEMATOCRIT. 24.2 % (36.0-48.0); HEMOGLOBIN. 7.5 g/dL (12.0-16.0); MEAN CORPUSCULAR HEMOGLOBIN 27.8 pg (28.0-32.0); MEAN CORPUSCULAR VOLUME 89.9 fL (81.0-99.0); MEAN PLATELET VOLUME 7.3 fl (7.4-10.4); PLATELET 356 x1000/uL (130-400); RED BLOOD CELL COUNT 2.69 mill/uL (4.2-5.4)
[2017-06-13 07:13] LABS: PLATELET ESTIMATE NORMAL
[2017-06-13] MEDS: METRONIDAZOLE 500MG TABLET PO SCH (08:20)
[2017-06-13] MEDS: ENOXAPARIN 40MG/0.4ML SYR SUBCUT SCH (08:30)
[2017-06-13] MEDS: PANTOPRAZOLE SODIUM 40 MG/VIAL IV SCH (08:36)
[2017-06-13] MEDS ORDERED: SODIUM CHLORIDE 0.9% 500 ML IV NR (09:30)
[2017-06-13] MEDS ORDERED: LORAZEPAM 2MG/ML CPJ IV NR (09:43)
[2017-06-13] MEDS: INSULIN GLARGINE UD 100 UNITS/ML SYR SUBCUT SCH (09:48)
[2017-06-13 10:21] LABS: PHOSPHORUS 2.5 mg/dL (2.5-4.9)
[2017-06-13 10:51] LABS: BG BASE EXCESS -0.1 mmol/L (-2.0-2.0); BG CARBOXYHEMOGLOBIN 0.8 % (0.5-1.5); BG DEOXYHEMOGLOBIN 6.4 % (0.0-5.0); BG FRACTION INSPIRED OXYGEN 50; BG HCO3 ACT 27.4 mmol/L (22.0-26.0); BG METHEMOGLOBIN 0.4 % (0.0-1.5); BG OXYGEN SATURATION 93.5 % (92.0-98.5); BG OXYHEMOGLOBIN 92.4 % (94.0-97.0); BG PCO2 61.8 mmHg (35.0-45.0); BG PH 7.265 (7.350-7.450); BG PO2 77.1 mmHg (75.0-100.0); BG PRESSURE SUPPORT 8; BG SAMPLE SITE LEFT RADIAL; BG TOTAL HEMOGLOBIN 8.6 g/dL (12.0-18.0); BG VENT MODE VENT - CPAP
[2017-06-13 12:26] LABS: BG BASE EXCESS -0.1 mmol/L (-2.0-2.0); BG CARBOXYHEMOGLOBIN 0.5 % (0.5-1.5); BG DEOXYHEMOGLOBIN 2.9 % (0.0-5.0); BG FRACTION INSPIRED OXYGEN 50; BG HCO3 ACT 25.8 mmol/L (22.0-26.0); BG METHEMOGLOBIN 0.4 % (0.0-1.5); BG OXYGEN SATURATION 97.1 % (92.0-98.5); BG OXYHEMOGLOBIN 96.2 % (94.0-97.0); BG PCO2 48.4 mmHg (35.0-45.0); BG PH 7.345 (7.350-7.450); BG PO2 97.8 mmHg (75.0-100.0); BG PRESSURE SUPPORT 8; BG SAMPLE SITE LEFT BRACHIAL; BG TIDAL VOLUME(mL) 500 mL; BG TOTAL HEMOGLOBIN 9.3 g/dL (12.0-18.0); BG VENT MODE VENT - SIMV; BG VENT RATE 14 set
[2017-06-13] MEDS ORDERED: METRONIDAZOLE 500 MG PREMIX 100 ML IV SCH (13:00)
[2017-06-13] MEDS ORDERED: AMIKACIN SULFATE 300 MG in SODIUM CHLORIDE 0.9% 100 ML IV SCH (17:00)
[2017-06-13] MEDS: MEROPENEM 1,000 MG in SODIUM CHLORIDE 0.9% 100 ML IV SCH (17:16)
[2017-06-13] MEDS: MIDAZOLAM HCL 100 MG in SODIUM CHLORIDE 0.9% 80 ML IV PRN (21:06)
[2017-06-14] VITALS (66 sets, daily range): BP systolic 91–154; BP diastolic 16–76
[2017-06-14] MEDS: NYSTATIN 100,000 UNITS/ML 5ML UDC SSP SCH ×4 (00:20→17:24)
[2017-06-14] MEDS: IPRATROPIUM/ALBUTEROL 0.5-3(2.5)MG/3ML NEB HHN SCH ×4 (01:59→20:22)
[2017-06-14] MEDS: MEROPENEM 1,000 MG in SODIUM CHLORIDE 0.9% 100 ML IV SCH ×2 (04:51→16:01)
[2017-06-14] MEDS: DEXT 5%/0.9% NACL KCL 20MEQ/L 1,000 ML IV SCH ×2 (04:51→15:42)
[2017-06-14 05:42] LABS: HEMATOCRIT. 21.2 % (36.0-48.0); MEAN CORPUSCULAR HEMOGLOBIN 28.2 pg (28.0-32.0); MEAN CORPUSCULAR VOLUME 89.5 fL (81.0-99.0); MEAN PLATELET VOLUME 6.6 fl (7.4-10.4); PLATELET 389 x1000/uL (130-400); RED BLOOD CELL COUNT 2.36 mill/uL (4.2-5.4); RED CELL DISTRIBUTION WIDTH 17.1 % (11.6-14.6)
[2017-06-14] MEDS: BLOOD SUGAR DIAGNOSTIC STRIP TEST SCH ×4 (06:00→17:16)
[2017-06-14] MEDS: INSULIN LISPRO 100 UNITS/ML SUBCUT SCH ×4 (06:00→17:17)
[2017-06-14 06:13] LABS: HEMOGLOBIN. 6.7 g/dL (12.0-16.0)
[2017-06-14] MEDS: VANCOMYCIN 1250MG in DEXTROSE 5% WATER 250ML IV SCH (06:20)
[2017-06-14 07:01] LABS: PLATELET ESTIMATE NORMAL
[2017-06-14] MEDS: PANTOPRAZOLE SODIUM 40 MG/VIAL IV SCH (08:12)
[2017-06-14] MEDS: INSULIN GLARGINE UD 100 UNITS/ML SYR SUBCUT SCH (09:01)
[2017-06-14] MEDS: FENTANYL CITRATE/PF 1,000 MCG in SODIUM CHLORIDE 0.9% 80 ML IV PRN ×2 (10:09→22:29)
[2017-06-14 11:23] LABS: BG BASE EXCESS 1.6 mmol/L (-2.0-2.0); BG DEOXYHEMOGLOBIN 9.9 % (0.0-5.0); BG HCO3 ACT 28.6 mmol/L (22.0-26.0); BG METHEMOGLOBIN 0.4 % (0.0-1.5); BG OXYHEMOGLOBIN 88.7 % (94.0-97.0); BG PCO2 59.7 mmHg (35.0-45.0); BG PH 7.299 (7.350-7.450); BG PO2 59.6 mmHg (75.0-100.0); BG SAMPLE SITE RIGHT RADIAL; BG TIDAL VOLUME(mL) 500 mL; BG TOTAL HEMOGLOBIN 8.6 g/dL (12.0-18.0); BG VENT MODE VENT - SIMV; BG VENT RATE 6 set
[2017-06-14 16:55] LABS: HEMATOCRIT 28.9 % (36.0-48.0); HEMOGLOBIN 8.8 g/dL (12.0-16.0)
[2017-06-15] VITALS (50 sets, daily range): BP systolic 86–122; BP diastolic 45–73
[2017-06-15] MEDS: NYSTATIN 100,000 UNITS/ML 5ML UDC SSP SCH ×4 (00:17→17:07)
[2017-06-15] MEDS: VANCOMYCIN 1250MG in DEXTROSE 5% WATER 250ML IV SCH ×2 (00:17→17:07)
[2017-06-15] MEDS: BLOOD SUGAR DIAGNOSTIC STRIP TEST SCH ×4 (00:17→17:06)
[2017-06-15] MEDS: IPRATROPIUM/ALBUTEROL 0.5-3(2.5)MG/3ML NEB HHN SCH ×4 (01:26→20:23)
[2017-06-15] MEDS: DEXT 5%/0.9% NACL KCL 20MEQ/L 1,000 ML IV SCH ×3 (01:27→15:13)
[2017-06-15] MEDS: MIDAZOLAM HCL 100 MG in SODIUM CHLORIDE 0.9% 80 ML IV PRN (03:44)
[2017-06-15] MEDS: MEROPENEM 1,000 MG in SODIUM CHLORIDE 0.9% 100 ML IV SCH ×2 (05:15→16:35)
[2017-06-15 05:29] LABS: HEMATOCRIT 22.6 % (36.0-48.0); HEMOGLOBIN 7.1 g/dL (12.0-16.0); MEAN CORPUSCULAR HEMOGLOBIN 28.7 pg (28.0-32.0); MEAN CORPUSCULAR VOLUME 90.8 fL (81.0-99.0); PLATELET 444 x1000/uL (130-400); RED BLOOD CELL COUNT 2.49 mill/uL (4.2-5.4)
[2017-06-15] MEDS: INSULIN LISPRO 100 UNITS/ML SUBCUT SCH ×4 (05:32→17:06)
[2017-06-15 06:48] LABS: BG BASE EXCESS 0.4 mmol/L (-2.0-2.0); BG CARBOXYHEMOGLOBIN 1.6 % (0.5-1.5); BG DEOXYHEMOGLOBIN 3.9 % (0.0-5.0); BG HCO3 ACT 27.2 mmol/L (22.0-26.0); BG OXYHEMOGLOBIN 94.5 % (94.0-97.0); BG PCO2 55.3 mmHg (35.0-45.0); BG PH 7.309 (7.350-7.450); BG SAMPLE SITE RIGHT RADIAL; BG TIDAL VOLUME(mL) 500 mL; BG TOTAL HEMOGLOBIN 9.1 g/dL (12.0-18.0); BG VENT MODE VENT - A/C; BG VENT RATE 12 set
[2017-06-15] MEDS: PANTOPRAZOLE SODIUM 40 MG/VIAL IV SCH (08:23)
[2017-06-15] MEDS: FENTANYL CITRATE/PF 1,000 MCG in SODIUM CHLORIDE 0.9% 80 ML IV PRN ×2 (09:45→21:54)
[2017-06-15] MEDS: INSULIN GLARGINE UD 100 UNITS/ML SYR SUBCUT SCH (09:52)
[2017-06-15] MEDS ORDERED: BISACODYL 10MG SUPP PR PRN (10:45)
[2017-06-15] MEDS ORDERED: SODIUM CHLORIDE 0.9% 1,000 ML IV NR (11:15)
[2017-06-15 11:35] LABS: TOTAL IRON BINDING CAPACITY 140 ug/dL (250-450)
[2017-06-15] MEDS ORDERED: SODIUM BICARBONATE 50 MEQ in DEXTROSE 5% WATER 1,000 ML IV ONE ×3 (12:30)
[2017-06-15] MEDS ORDERED: IOHEXOL-350 100 ML BOTTLE ONE (14:01)
[2017-06-15] MEDS: IRON SUCROSE COMPLEX 100 MG/5 ML ML IV SCH (15:49)
[2017-06-15] MEDS ORDERED: BIMA2.5D4 EACHEYE (17:32)
[2017-06-15] MEDS ORDERED: VALS160T2 PO (17:32)
[2017-06-15] MEDS ORDERED: AZOPT BOTHEYE (17:32)
[2017-06-15] MEDS ORDERED: SODI15DR6 OP (17:32)
[2017-06-15] MEDS ORDERED: GLIP10TA10 PO (17:32)
[2017-06-15] MEDS ORDERED: DILT240C92 PO (17:32)
[2017-06-15] MEDS ORDERED: SULFACETAMIDE SODIUM 10% OPHTH DROPS 15ML RIGHTEYE SCH (18:00)
[2017-06-15] MEDS: CIPROFLOXACIN 0.3% OPHTH SOLN 2.5ML RIGHTEYE SCH (20:08)
[2017-06-16] VITALS (57 sets, daily range): BP systolic 76–146; BP diastolic 37–92
[2017-06-16] MEDS: BLOOD SUGAR DIAGNOSTIC STRIP TEST SCH ×5 (00:20→23:24)
[2017-06-16] MEDS: INSULIN LISPRO 100 UNITS/ML SUBCUT SCH ×5 (00:20→23:24)
[2017-06-16] MEDS: NYSTATIN 100,000 UNITS/ML 5ML UDC SSP SCH ×5 (01:20→23:24)
[2017-06-16] MEDS: DEXT 5%/0.9% NACL KCL 20MEQ/L 1,000 ML IV SCH ×2 (01:21→06:47)
[2017-06-16] MEDS: IPRATROPIUM/ALBUTEROL 0.5-3(2.5)MG/3ML NEB HHN SCH ×4 (01:39→20:57)
[2017-06-16] MEDS: MIDAZOLAM HCL 100 MG in SODIUM CHLORIDE 0.9% 80 ML IV PRN ×2 (04:16→14:42)
[2017-06-16] MEDS: MEROPENEM 1,000 MG in SODIUM CHLORIDE 0.9% 100 ML IV SCH ×2 (04:59→16:34)
[2017-06-16 05:32] LABS: HEMATOCRIT. 27.7 % (36.0-48.0); HEMOGLOBIN. 8.6 g/dL (12.0-16.0); MEAN CORPUSCULAR HEMOGLOBIN 27.6 pg (28.0-32.0); MEAN CORPUSCULAR VOLUME 89.2 fL (81.0-99.0); MEAN PLATELET VOLUME 6.6 fl (7.4-10.4); PLATELET 506 x1000/uL (130-400); RED BLOOD CELL COUNT 3.11 mill/uL (4.2-5.4); RED CELL DISTRIBUTION WIDTH 17.5 % (11.6-14.6)
[2017-06-16 07:20] LABS: PLATELET ESTIMATE INCREASED
[2017-06-16 08:37] LABS: BG BASE EXCESS 1.1 mmol/L (-2.0-2.0); BG CARBOXYHEMOGLOBIN 1.1 % (0.5-1.5); BG DEOXYHEMOGLOBIN 4.2 % (0.0-5.0); BG FRACTION INSPIRED OXYGEN 40; BG HCO3 ACT 27.9 mmol/L (22.0-26.0); BG METHEMOGLOBIN 0.3 % (0.0-1.5); BG OXYGEN SATURATION 95.7 % (92.0-98.5); BG OXYHEMOGLOBIN 94.4 % (94.0-97.0); BG PCO2 56.2 mmHg (35.0-45.0); BG PH 7.314 (7.350-7.450); BG PO2 85.5 mmHg (75.0-100.0); BG SAMPLE SITE RIGHT RADIAL; BG TIDAL VOLUME(mL) 500 mL; BG TOTAL HEMOGLOBIN 9.5 g/dL (12.0-18.0); BG VENT MODE VENT - A/C; BG VENT RATE 12 set
[2017-06-16] MEDS: IRON SUCROSE COMPLEX 100 MG/5 ML ML IV SCH (09:00)
[2017-06-16] MEDS ORDERED: NA PHOS,M-B/NA PHOS,DI-BA ENEMA 118ML PR SCH (09:15)
[2017-06-16] MEDS ORDERED: BISACODYL 5MG TABLET PO PRN (09:15)
[2017-06-16] MEDS ORDERED: LACTULOSE 20G/30ML UDC PO SCH (09:15)
[2017-06-16] MEDS ORDERED: DEXT 10% WATER 1,000 ML IV SCH (09:30)
[2017-06-16] MEDS: CIPROFLOXACIN 0.3% OPHTH SOLN 2.5ML RIGHTEYE SCH ×3 (09:37→16:36)
[2017-06-16] MEDS: PANTOPRAZOLE SODIUM 40 MG/VIAL IV SCH (09:37)
[2017-06-16] MEDS: DOCUSATE SODIUM SUGAR FREE 100MG/10ML UDC NG SCH (09:37)
[2017-06-16] MEDS ORDERED: LIDOCAINE HCL 1% 20ML VIAL (Pyxis) INJ ONE (10:07)
[2017-06-16] MEDS ORDERED: SODIUM BICARBONATE 4% (2.4MEQ) 5ML VIAL IV ONE (10:07)
[2017-06-16] MEDS ORDERED: IOHEXOL-300 100 ML BOTTLE ONE (10:08)
[2017-06-16] MEDS: FENTANYL CITRATE/PF 1,000 MCG in SODIUM CHLORIDE 0.9% 80 ML IV PRN (11:53)
[2017-06-16] MEDS: DEXT 5%/0.45% NACL 1000ML 1,000 ML IV SCH (14:45)
[2017-06-16] MEDS: METOCLOPRAMIDE HCL 5MG TABLET NG SCH ×2 (17:42→23:24)
[2017-06-17] VITALS (89 sets, daily range): BP systolic 101–136; BP diastolic 46–93
[2017-06-17] MEDS: FENTANYL CITRATE/PF 1,000 MCG in SODIUM CHLORIDE 0.9% 80 ML IV PRN ×2 (00:58→17:42)
[2017-06-17] MEDS: MIDAZOLAM HCL 100 MG in SODIUM CHLORIDE 0.9% 80 ML IV PRN ×2 (01:00→13:55)
[2017-06-17] MEDS: IPRATROPIUM/ALBUTEROL 0.5-3(2.5)MG/3ML NEB HHN SCH ×4 (04:06→20:51)
[2017-06-17] MEDS: MEROPENEM 1,000 MG in SODIUM CHLORIDE 0.9% 100 ML IV SCH ×2 (04:06→17:34)
[2017-06-17] MEDS: DEXT 5%/0.45% NACL 1000ML 1,000 ML IV SCH ×2 (04:18→19:30)
[2017-06-17] MEDS: BLOOD SUGAR DIAGNOSTIC STRIP TEST SCH ×3 (05:06→17:37)
[2017-06-17] MEDS: NYSTATIN 100,000 UNITS/ML 5ML UDC SSP SCH ×3 (05:06→17:34)
[2017-06-17] MEDS: METOCLOPRAMIDE HCL 5MG TABLET NG SCH ×2 (05:06→12:00)
[2017-06-17] MEDS: INSULIN LISPRO 100 UNITS/ML SUBCUT SCH ×3 (05:06→17:37)
[2017-06-17 05:36] LABS: HEMATOCRIT. 26.2 % (36.0-48.0); HEMOGLOBIN. 8.3 g/dL (12.0-16.0); MEAN CORPUSCULAR HEMOGLOBIN 28.1 pg (28.0-32.0); MEAN CORPUSCULAR VOLUME 88.9 fL (81.0-99.0); MEAN PLATELET VOLUME 6.7 fl (7.4-10.4); PLATELET 492 x1000/uL (130-400); RED BLOOD CELL COUNT 2.95 mill/uL (4.2-5.4); RED CELL DISTRIBUTION WIDTH 17.3 % (11.6-14.6)
[2017-06-17 05:52] LABS: CHLORIDE 112 mEq/L (98-107)
[2017-06-17] MEDS ORDERED: VANCOMYCIN 1 G PREMIX 200 ML IV SCH (06:00)
[2017-06-17 07:53] LABS: PLATELET ESTIMATE INCREASED
[2017-06-17] MEDS: PANTOPRAZOLE SODIUM 40 MG/VIAL IV SCH (09:24)
[2017-06-17] MEDS: DOCUSATE SODIUM SUGAR FREE 100MG/10ML UDC NG SCH (09:24)
[2017-06-17] MEDS: CIPROFLOXACIN 0.3% OPHTH SOLN 2.5ML RIGHTEYE SCH ×3 (09:24→17:34)
[2017-06-17] MEDS ORDERED: ALBUMIN HUMAN 25GM/500ML (5%) IV NR (10:00)
[2017-06-17] MEDS: METOCLOPRAMIDE 10MG/10 ML UDC NG SCH ×2 (14:00→22:15)
[2017-06-17] MEDS ORDERED: METOCLOPRAMIDE 10MG/10 ML UDC NG SCH (18:00)
[2017-06-18] VITALS (58 sets, daily range): BP systolic 105–152; BP diastolic 54–80
[2017-06-18] MEDS ORDERED: MIDAZOLAM HCL 100 MG in SODIUM CHLORIDE 0.9% 80 ML IV PRN (00:30)
[2017-06-18] MEDS: NYSTATIN 100,000 UNITS/ML 5ML UDC SSP SCH ×2 (00:30→05:35)
[2017-06-18] MEDS ORDERED: FENTANYL CITRATE/PF 1,000 MCG in SODIUM CHLORIDE 0.9% 80 ML IV PRN (00:30)
[2017-06-18] MEDS: BLOOD SUGAR DIAGNOSTIC STRIP TEST SCH ×4 (00:30→17:19)
[2017-06-18] MEDS: IPRATROPIUM/ALBUTEROL 0.5-3(2.5)MG/3ML NEB HHN SCH ×4 (01:50→19:47)
[2017-06-18] MEDS: DEXT 5%/0.45% NACL 1000ML 1,000 ML IV SCH ×3 (02:00→20:48)
[2017-06-18] MEDS: METOCLOPRAMIDE 10MG/10 ML UDC NG SCH ×3 (05:35→22:21)
[2017-06-18] MEDS: INSULIN LISPRO 100 UNITS/ML SUBCUT SCH ×4 (05:35→17:19)
[2017-06-18] MEDS: DOCUSATE SODIUM SUGAR FREE 100MG/10ML UDC NG SCH (08:07)
[2017-06-18 08:15] LABS: BASOPHILS % 0.5 % (0.0-2.0); EOSINOPHILS % 2.5 % (0.0-5.0); HEMATOCRIT. 25.1 % (36.0-48.0); HEMOGLOBIN. 8.2 g/dL (12.0-16.0); LYMPHOCYTES % 7.8 % (20.0-50.0); MEAN CORPUSCULAR HEMOGLOBIN 28.8 pg (28.0-32.0); MEAN CORPUSCULAR VOLUME 88.3 fL (81.0-99.0); MEAN PLATELET VOLUME 6.6 fl (7.4-10.4); MONOCYTES % 7.2 % (2.0-8.0); PLATELET 487 x1000/uL (130-400); RED BLOOD CELL COUNT 2.85 mill/uL (4.2-5.4); RED CELL DISTRIBUTION WIDTH 16.9 % (11.6-14.6)
[2017-06-18] MEDS: PANTOPRAZOLE SODIUM 40 MG/VIAL IV SCH (08:27)
[2017-06-18] MEDS: CIPROFLOXACIN 0.3% OPHTH SOLN 2.5ML RIGHTEYE SCH ×3 (08:27→17:02)
[2017-06-18] MEDS ORDERED: BISACODYL 10MG SUPP PR STA (09:14)
[2017-06-18] MEDS ORDERED: POTASSIUM CHLORIDE INJ 40 MEQ in DEXT 5% WATER 250 ML IV SCH (10:00)
[2017-06-18] MEDS: RISPERIDONE 0.5MG TABLET NG SCH ×2 (10:25→17:02)
[2017-06-18] MEDS: FENTANYL CITRATE/PF 1,000 MCG in SODIUM CHLORIDE 0.9% 80 ML IV PRN (10:29)
[2017-06-18] MEDS ORDERED: FENTANYL CITRATE/PF 1,000 MCG in SODIUM CHLORIDE 0.9% 90 ML IV PRN (10:30)
[2017-06-18] MEDS: MIDAZOLAM HCL 100 MG in SODIUM CHLORIDE 0.9% 80 ML IV PRN ×2 (10:30→20:45)
[2017-06-19] VITALS (43 sets, daily range): BP systolic 91–167; BP diastolic 45–120
[2017-06-19] MEDS: BLOOD SUGAR DIAGNOSTIC STRIP TEST SCH ×4 (00:15→17:01)
[2017-06-19] MEDS: FENTANYL CITRATE/PF 1,000 MCG in SODIUM CHLORIDE 0.9% 80 ML IV PRN ×2 (01:29→13:21)
[2017-06-19] MEDS: IPRATROPIUM/ALBUTEROL 0.5-3(2.5)MG/3ML NEB HHN SCH ×4 (01:37→20:01)
[2017-06-19 05:42] LABS: BASOPHILS % 0.7 % (0.0-2.0); EOSINOPHILS % 2.1 % (0.0-5.0); HEMATOCRIT. 26.5 % (36.0-48.0); HEMOGLOBIN. 8.9 g/dL (12.0-16.0); LYMPHOCYTES % 11.2 % (20.0-50.0); MEAN CORPUSCULAR HEMOGLOBIN 29.8 pg (28.0-32.0); MEAN PLATELET VOLUME 6.7 fl (7.4-10.4); MONOCYTES % 7.3 % (2.0-8.0); NEUTROPHILS % 78.7 % (40.0-76.0); PLATELET 500 x1000/uL (130-400); RED BLOOD CELL COUNT 2.98 mill/uL (4.2-5.4); RED CELL DISTRIBUTION WIDTH 17.4 % (11.6-14.6)
[2017-06-19 05:45] LABS: INR 1.1; PROTHROMBIN TIME 11.5 sec (9.4-11.6)
[2017-06-19] MEDS: INSULIN LISPRO 100 UNITS/ML SUBCUT SCH ×4 (06:00→17:01)
[2017-06-19] MEDS: METOCLOPRAMIDE 10MG/10 ML UDC NG SCH ×3 (06:00→22:07)
[2017-06-19 06:09] LABS: PHOSPHORUS 4.2 mg/dL (2.5-4.9)
[2017-06-19] MEDS: MIDAZOLAM HCL 100 MG in SODIUM CHLORIDE 0.9% 80 ML IV PRN (07:52)
[2017-06-19 07:55] LABS: BG BASE EXCESS -0.5 mmol/L (-2.0-2.0); BG CARBOXYHEMOGLOBIN 0.9 % (0.5-1.5); BG DEOXYHEMOGLOBIN 3.6 % (0.0-5.0); BG FRACTION INSPIRED OXYGEN 35; BG HCO3 ACT 25.5 mmol/L (22.0-26.0); BG METHEMOGLOBIN 0.2 % (0.0-1.5); BG OXYGEN SATURATION 96.4 % (92.0-98.5); BG OXYHEMOGLOBIN 95.3 % (94.0-97.0); BG PCO2 49.1 mmHg (35.0-45.0); BG PH 7.334 (7.350-7.450); BG SAMPLE SITE LEFT RADIAL; BG TIDAL VOLUME(mL) 500 mL; BG TOTAL HEMOGLOBIN 8.7 g/dL (12.0-18.0); BG VENT MODE VENT - A/C; BG VENT RATE 12 set
[2017-06-19] MEDS: RISPERIDONE 0.5MG TABLET NG SCH ×2 (08:00→16:11)
[2017-06-19] MEDS: DOCUSATE SODIUM SUGAR FREE 100MG/10ML UDC NG SCH (08:00)
[2017-06-19] MEDS: CIPROFLOXACIN 0.3% OPHTH SOLN 2.5ML RIGHTEYE SCH ×3 (08:04→16:52)
[2017-06-19] MEDS: PANTOPRAZOLE SODIUM 40 MG/VIAL IV SCH (08:04)
[2017-06-19] MEDS ORDERED: POTASSIUM CHLORIDE INJ 40 MEQ in DEXT 5% WATER 250 ML IV NR (10:00)
[2017-06-19] MEDS: DEXT 5%/0.45% NACL 1000ML 1,000 ML IV SCH (16:52)
[2017-06-19] MEDS ORDERED: ROCURONIUM BROMIDE 10MG/ML VIAL 5ML IV ONE (19:25)
[2017-06-19] MEDS: MORPHINE SULFATE 2 MG/ML CPJ (NOT FOR IM USE) IV PRN (22:07)
[2017-06-19] MEDS: ACETAMINOPHEN 650MG/20.3ML UDC GT PRN (22:49)
[2017-06-20] VITALS (41 sets, daily range): BP systolic 116–175; BP diastolic 62–95
[2017-06-20] MEDS: FENTANYL CITRATE/PF 1,000 MCG in SODIUM CHLORIDE 0.9% 80 ML IV PRN ×3 (00:17→22:22)
[2017-06-20] MEDS: MIDAZOLAM HCL 100 MG in SODIUM CHLORIDE 0.9% 80 ML IV PRN ×2 (00:17→17:19)
[2017-06-20] MEDS: BLOOD SUGAR DIAGNOSTIC STRIP TEST SCH ×4 (00:23→17:34)
[2017-06-20] MEDS: IPRATROPIUM/ALBUTEROL 0.5-3(2.5)MG/3ML NEB HHN SCH ×4 (01:51→20:26)
[2017-06-20] MEDS: DEXT 5%/0.45% NACL 1000ML 1,000 ML IV SCH ×2 (04:06→19:58)
[2017-06-20] MEDS: METOCLOPRAMIDE 10MG/10 ML UDC NG SCH ×3 (05:58→22:20)
[2017-06-20] MEDS: INSULIN LISPRO 100 UNITS/ML SUBCUT SCH ×4 (05:58→17:34)
[2017-06-20 07:15] LABS: EOSINOPHILS % 1.1 % (0.0-5.0); HEMATOCRIT. 28.3 % (36.0-48.0); HEMOGLOBIN. 9.1 g/dL (12.0-16.0); LYMPHOCYTES % 8.8 % (20.0-50.0); MEAN CORPUSCULAR HEMOGLOBIN 28.6 pg (28.0-32.0); MEAN CORPUSCULAR VOLUME 88.9 fL (81.0-99.0); MEAN PLATELET VOLUME 7.1 fl (7.4-10.4); MONOCYTES % 6.6 % (2.0-8.0); NEUTROPHILS % 82.5 % (40.0-76.0); PLATELET 480 x1000/uL (130-400); RED BLOOD CELL COUNT 3.19 mill/uL (4.2-5.4); RED CELL DISTRIBUTION WIDTH 16.6 % (11.6-14.6)
[2017-06-20 07:24] LABS: BG BASE EXCESS -0.6 mmol/L (-2.0-2.0); BG CARBOXYHEMOGLOBIN 0.9 % (0.5-1.5); BG DEOXYHEMOGLOBIN 4.5 % (0.0-5.0); BG FRACTION INSPIRED OXYGEN 35; BG HCO3 ACT 25.8 mmol/L (22.0-26.0); BG METHEMOGLOBIN 0.6 % (0.0-1.5); BG OXYGEN SATURATION 95.4 % (92.0-98.5); BG PCO2 51.3 mmHg (35.0-45.0); BG PO2 83.8 mmHg (75.0-100.0); BG SAMPLE SITE LEFT RADIAL; BG TIDAL VOLUME(mL) 500 mL; BG TOTAL HEMOGLOBIN 9.5 g/dL (12.0-18.0); BG VENT MODE VENT - A/C; BG VENT RATE 12 set
[2017-06-20] MEDS: RISPERIDONE 0.5MG TABLET NG SCH ×2 (08:28→17:33)
[2017-06-20] MEDS: CIPROFLOXACIN 0.3% OPHTH SOLN 2.5ML RIGHTEYE SCH ×3 (08:28→17:34)
[2017-06-20] MEDS: DOCUSATE SODIUM SUGAR FREE 100MG/10ML UDC NG SCH (08:28)
[2017-06-20] MEDS: PANTOPRAZOLE SODIUM 40 MG/VIAL IV SCH (08:28)
[2017-06-20] MEDS: ENOXAPARIN 40MG/0.4ML SYR SUBCUT SCH (11:27)
[2017-06-20] MEDS: MORPHINE SULFATE 2 MG/ML CPJ (NOT FOR IM USE) IV PRN (22:20)
[2017-06-21] VITALS (36 sets, daily range): BP systolic 126–176; BP diastolic 60–133
[2017-06-21] MEDS: BLOOD SUGAR DIAGNOSTIC STRIP TEST SCH ×4 (00:25→17:08)
[2017-06-21] MEDS: IPRATROPIUM/ALBUTEROL 0.5-3(2.5)MG/3ML NEB HHN SCH ×4 (02:28→19:53)
[2017-06-21] MEDS: METOCLOPRAMIDE 10MG/10 ML UDC NG SCH ×3 (06:15→21:00)
[2017-06-21] MEDS: INSULIN LISPRO 100 UNITS/ML SUBCUT SCH ×4 (06:16→17:08)
[2017-06-21] MEDS: DEXT 5%/0.45% NACL 1000ML 1,000 ML IV SCH ×2 (06:43→21:01)
[2017-06-21] MEDS: PANTOPRAZOLE SODIUM 40 MG/VIAL IV SCH (09:19)
[2017-06-21] MEDS: RISPERIDONE 0.5MG TABLET NG SCH ×2 (09:19→17:02)
[2017-06-21] MEDS: DOCUSATE SODIUM SUGAR FREE 100MG/10ML UDC NG SCH (09:19)
[2017-06-21] MEDS: FENTANYL CITRATE/PF 1,000 MCG in SODIUM CHLORIDE 0.9% 80 ML IV PRN (09:56)
[2017-06-21] MEDS: ENOXAPARIN 40MG/0.4ML SYR SUBCUT SCH (12:00)
[2017-06-21 12:26] LABS: BG CARBOXYHEMOGLOBIN 0.4 % (0.5-1.5); BG DEOXYHEMOGLOBIN 5.5 % (0.0-5.0); BG FRACTION INSPIRED OXYGEN 35; BG HCO3 ACT 30.1 mmol/L (22.0-26.0); BG METHEMOGLOBIN 0.4 % (0.0-1.5); BG OXYGEN SATURATION 94.5 % (92.0-98.5); BG OXYHEMOGLOBIN 93.7 % (94.0-97.0); BG PCO2 53.3 mmHg (35.0-45.0); BG PH 7.369 (7.350-7.450); BG SAMPLE SITE RIGHT RADIAL; BG TIDAL VOLUME(mL) 500 mL; BG TOTAL HEMOGLOBIN 9.2 g/dL (12.0-18.0); BG VENT MODE VENT - SIMV; BG VENT RATE 6 set
[2017-06-21] MEDS: MIDAZOLAM HCL 100 MG in SODIUM CHLORIDE 0.9% 80 ML IV PRN (12:31)
[2017-06-22] VITALS (49 sets, daily range): BP systolic 114–174; BP diastolic 59–104
[2017-06-22] MEDS: BLOOD SUGAR DIAGNOSTIC STRIP TEST SCH ×4 (00:15→17:11)
[2017-06-22] MEDS: FENTANYL CITRATE/PF 1,000 MCG in SODIUM CHLORIDE 0.9% 80 ML IV PRN ×2 (01:14→12:23)
[2017-06-22] MEDS: IPRATROPIUM/ALBUTEROL 0.5-3(2.5)MG/3ML NEB HHN SCH ×4 (01:56→20:04)
[2017-06-22 04:39] LABS: EOSINOPHILS % 2.1 % (0.0-5.0); HEMATOCRIT. 26.2 % (36.0-48.0); HEMOGLOBIN. 8.3 g/dL (12.0-16.0); MEAN CORPUSCULAR HEMOGLOBIN 27.8 pg (28.0-32.0); MEAN CORPUSCULAR VOLUME 87.4 fL (81.0-99.0); MEAN PLATELET VOLUME 6.7 fl (7.4-10.4); MONOCYTES % 6.7 % (2.0-8.0); NEUTROPHILS % 79.2 % (40.0-76.0); PLATELET 427 x1000/uL (130-400); RED CELL DISTRIBUTION WIDTH 16.4 % (11.6-14.6)
[2017-06-22 05:04] LABS: CHLORIDE 106 mEq/L (98-107)
[2017-06-22] MEDS: INSULIN LISPRO 100 UNITS/ML SUBCUT SCH ×4 (05:28→17:14)
[2017-06-22] MEDS: MIDAZOLAM HCL 100 MG in SODIUM CHLORIDE 0.9% 80 ML IV PRN ×2 (05:28→22:04)
[2017-06-22] MEDS: METOCLOPRAMIDE 10MG/10 ML UDC NG SCH ×3 (05:38→21:00)
[2017-06-22] MEDS: PANTOPRAZOLE SODIUM 40 MG/VIAL IV SCH (09:16)
[2017-06-22] MEDS: RISPERIDONE 0.5MG TABLET NG SCH ×2 (09:16→17:14)
[2017-06-22] MEDS: DOCUSATE SODIUM SUGAR FREE 100MG/10ML UDC NG SCH (09:16)
[2017-06-22] MEDS ORDERED: POTASSIUM CHLORIDE 20MEQ/PACKET PO NR ×2 (10:30→14:30)
[2017-06-22] MEDS: DEXT 5%/0.45% NACL 1000ML 1,000 ML IV SCH (10:34)
[2017-06-22] MEDS: ENOXAPARIN 40MG/0.4ML SYR SUBCUT SCH (12:19)
[2017-06-22] MEDS: DEXT 5%/0.45% NACL KCL 20MEQ/L 1,000 ML IV SCH (12:19)
[2017-06-22] MEDS ORDERED: MAGNESIUM 2 G PREMIX 50 ML IV NR (12:30)
[2017-06-22] MEDS: MORPHINE SULFATE 2 MG/ML CPJ (NOT FOR IM USE) IV PRN (16:06)
[2017-06-23] VITALS (48 sets, daily range): BP systolic 109–165; BP diastolic 56–119
[2017-06-23] MEDS: BLOOD SUGAR DIAGNOSTIC STRIP TEST SCH ×4 (00:05→18:00)
[2017-06-23] MEDS: DEXT 5%/0.45% NACL KCL 20MEQ/L 1,000 ML IV SCH (01:00)
[2017-06-23] MEDS: IPRATROPIUM/ALBUTEROL 0.5-3(2.5)MG/3ML NEB HHN SCH ×4 (01:21→20:16)
[2017-06-23] MEDS: FENTANYL CITRATE/PF 1,000 MCG in SODIUM CHLORIDE 0.9% 80 ML IV PRN (01:23)
[2017-06-23] MEDS: MORPHINE SULFATE 2 MG/ML CPJ (NOT FOR IM USE) IV PRN (03:59)
[2017-06-23 04:53] LABS: HEMATOCRIT. 25.6 % (36.0-48.0); HEMOGLOBIN. 8.2 g/dL (12.0-16.0); MEAN CORPUSCULAR VOLUME 87.3 fL (81.0-99.0); MEAN PLATELET VOLUME 6.7 fl (7.4-10.4); PLATELET 385 x1000/uL (130-400); RED BLOOD CELL COUNT 2.93 mill/uL (4.2-5.4); RED CELL DISTRIBUTION WIDTH 16.8 % (11.6-14.6)
[2017-06-23 04:55] LABS: BG BASE EXCESS 5.5 mmol/L (-2.0-2.0); BG CARBOXYHEMOGLOBIN 1.1 % (0.5-1.5); BG DEOXYHEMOGLOBIN 8.7 % (0.0-5.0); BG FRACTION INSPIRED OXYGEN 100; BG HCO3 ACT 32.2 mmol/L (22.0-26.0); BG METHEMOGLOBIN 0.3 % (0.0-1.5); BG OXYGEN SATURATION 91.2 % (92.0-98.5); BG OXYHEMOGLOBIN 89.9 % (94.0-97.0); BG PCO2 60.7 mmHg (35.0-45.0); BG PH 7.343 (7.350-7.450); BG PO2 67.6 mmHg (75.0-100.0); BG SAMPLE SITE RIGHT BRACHIAL; BG TIDAL VOLUME(mL) 500 mL; BG TOTAL HEMOGLOBIN 8.8 g/dL (12.0-18.0); BG VENT MODE VENT - A/C; BG VENT RATE 14 set
[2017-06-23 05:11] LABS: CHLORIDE 105 mEq/L (98-107)
[2017-06-23] MEDS: METOCLOPRAMIDE 10MG/10 ML UDC NG SCH ×3 (05:48→19:00)
[2017-06-23] MEDS: INSULIN LISPRO 100 UNITS/ML SUBCUT SCH ×4 (05:49→18:00)
[2017-06-23 08:23] LABS: BG BASE EXCESS 10.7 mmol/L (-2.0-2.0); BG CARBOXYHEMOGLOBIN 0.4 % (0.5-1.5); BG DEOXYHEMOGLOBIN 0.6 % (0.0-5.0); BG FRACTION INSPIRED OXYGEN 100; BG HCO3 ACT 36.4 mmol/L (22.0-26.0); BG METHEMOGLOBIN 0.5 % (0.0-1.5); BG OXYGEN SATURATION 99.4 % (92.0-98.5); BG OXYHEMOGLOBIN 98.5 % (94.0-97.0); BG PCO2 55.9 mmHg (35.0-45.0); BG PH 7.431 (7.350-7.450); BG SAMPLE SITE RIGHT RADIAL; BG TIDAL VOLUME(mL) 500 mL; BG TOTAL HEMOGLOBIN 8.8 g/dL (12.0-18.0); BG VENT MODE VENT - A/C; BG VENT RATE 14 set
[2017-06-23] MEDS: PANTOPRAZOLE SODIUM 40 MG/VIAL IV SCH (09:10)
[2017-06-23] MEDS: DOCUSATE SODIUM SUGAR FREE 100MG/10ML UDC NG SCH (09:10)
[2017-06-23] MEDS: RISPERIDONE 0.5MG TABLET NG SCH (09:10)
[2017-06-23] MEDS ORDERED: FENTANYL CITRATE/PF 500 MCG in SODIUM CHLORIDE 0.9% 40 ML IV PRN (11:45)
[2017-06-23] MEDS: ENOXAPARIN 40MG/0.4ML SYR SUBCUT SCH (12:35)
[2017-06-23 12:48] LABS: PLATELET ESTIMATE NORMAL
[2017-06-23] MEDS: ACETYLCYSTEINE 100MG/ML 10% VIAL 4ML INH SCH ×2 (13:00→20:15)
[2017-06-23] MEDS ORDERED: POTASSIUM CHLORIDE 20MEQ TABLET SR PO SCH (13:45)
[2017-06-23] MEDS: RISPERIDONE 1MG TABLET PO SCH (16:16)
[2017-06-23] MEDS: MIDAZOLAM HCL 50 MG in DEXTROSE 5% WATER 40 ML IV PRN (17:07)
[2017-06-24] VITALS (46 sets, daily range): BP systolic 120–190; BP diastolic 63–120
[2017-06-24] MEDS: BLOOD SUGAR DIAGNOSTIC STRIP TEST SCH ×5 (00:30→23:45)
[2017-06-24] MEDS: METOCLOPRAMIDE 10MG/10 ML UDC NG SCH ×5 (00:32→23:43)
[2017-06-24] MEDS: ACETYLCYSTEINE 100MG/ML 10% VIAL 4ML INH SCH ×2 (01:48→19:52)
[2017-06-24] MEDS: IPRATROPIUM/ALBUTEROL 0.5-3(2.5)MG/3ML NEB HHN SCH ×3 (01:48→19:52)
[2017-06-24] MEDS: MORPHINE SULFATE 2 MG/ML CPJ (NOT FOR IM USE) IV PRN (03:17)
[2017-06-24] MEDS: INSULIN LISPRO 100 UNITS/ML SUBCUT SCH ×5 (05:23→23:45)
[2017-06-24] MEDS ORDERED: HYDRALAZINE 20MG/ML VIAL IV PRN (08:15)
[2017-06-24] MEDS: PANTOPRAZOLE SODIUM 40 MG/VIAL IV SCH (09:43)
[2017-06-24] MEDS: RISPERIDONE 1MG TABLET PO SCH ×2 (09:44→18:15)
[2017-06-24] MEDS: DOCUSATE SODIUM SUGAR FREE 100MG/10ML UDC NG SCH (09:44)
[2017-06-24] MEDS ORDERED: CLONIDINE 0.2MG TABLET PO PRN (10:00)
[2017-06-24] MEDS ORDERED: CLONIDINE 0.1MG TABLET PO PRN (10:07)
[2017-06-24] MEDS ORDERED: POTASSIUM CHLORIDE 20MEQ TABLET SR PO NR (10:30)
[2017-06-24] MEDS: HYDRALAZINE 20MG/ML VIAL IV PRN ×2 (12:38→18:23)
[2017-06-24] MEDS: ENOXAPARIN 40MG/0.4ML SYR SUBCUT SCH (12:45)
[2017-06-24] MEDS: DILTIAZEM HCL 30MG TABLET PO SCH ×3 (12:46→23:43)
[2017-06-24] MEDS: MIDAZOLAM HCL 50 MG in DEXTROSE 5% WATER 40 ML IV PRN (14:45)
[2017-06-24 16:43] LABS: CHLORIDE 100 mEq/L (98-107)
[2017-06-24] MEDS: DILTIAZEM HCL 125 MG in SODIUM CHLORIDE 0.9% 100 ML IV PRN (20:14)
[2017-06-24] MEDS: LORAZEPAM 2MG/ML CPJ IV PRN (20:27)
[2017-06-24] MEDS: ACETAMINOPHEN 650MG/20.3ML UDC GT PRN (23:43)
[2017-06-25] VITALS (39 sets, daily range): BP systolic 113–163; BP diastolic 60–90
[2017-06-25] MEDS: IPRATROPIUM/ALBUTEROL 0.5-3(2.5)MG/3ML NEB HHN SCH ×4 (02:09→20:55)
[2017-06-25] MEDS: ACETYLCYSTEINE 100MG/ML 10% VIAL 4ML INH SCH ×2 (02:09→08:45)
[2017-06-25] MEDS: MIDAZOLAM HCL 50 MG in DEXTROSE 5% WATER 40 ML IV PRN (05:40)
[2017-06-25] MEDS: METOCLOPRAMIDE 10MG/10 ML UDC NG SCH ×3 (05:50→18:17)
[2017-06-25] MEDS: DILTIAZEM HCL 30MG TABLET PO SCH ×3 (05:50→18:17)
[2017-06-25 05:51] LABS: BASOPHILS % 0.7 % (0.0-2.0); EOSINOPHILS % 1.3 % (0.0-5.0); HEMATOCRIT. 26.4 % (36.0-48.0); HEMOGLOBIN. 8.8 g/dL (12.0-16.0); LYMPHOCYTES % 12.2 % (20.0-50.0); MEAN CORPUSCULAR HEMOGLOBIN 29.2 pg (28.0-32.0); MEAN CORPUSCULAR VOLUME 87.7 fL (81.0-99.0); MEAN PLATELET VOLUME 7.9 fl (7.4-10.4); MONOCYTES % 7.1 % (2.0-8.0); NEUTROPHILS % 78.7 % (40.0-76.0); PLATELET 320 x1000/uL (130-400); RED BLOOD CELL COUNT 3.01 mill/uL (4.2-5.4); RED CELL DISTRIBUTION WIDTH 16.7 % (11.6-14.6)
[2017-06-25] MEDS: DILTIAZEM HCL 125 MG in SODIUM CHLORIDE 0.9% 100 ML IV PRN (06:06)
[2017-06-25 06:34] LABS: CHLORIDE 101 mEq/L (98-107)
[2017-06-25] MEDS: BLOOD SUGAR DIAGNOSTIC STRIP TEST SCH ×4 (07:00→23:59)
[2017-06-25] MEDS: INSULIN LISPRO 100 UNITS/ML SUBCUT SCH ×4 (07:00→23:59)
[2017-06-25] MEDS ORDERED: DEXT 5% WATER + KCL 40MEQ/L 500 ML IV SCH (07:45)
[2017-06-25 08:10] LABS: BG BASE EXCESS 13.7 mmol/L (-2.0-2.0); BG CARBOXYHEMOGLOBIN 0.6 % (0.5-1.5); BG DEOXYHEMOGLOBIN 3.9 % (0.0-5.0); BG FRACTION INSPIRED OXYGEN 40; BG HCO3 ACT 38.5 mmol/L (22.0-26.0); BG METHEMOGLOBIN 0.5 % (0.0-1.5); BG OXYGEN SATURATION 96.1 % (92.0-98.5); BG PH 7.496 (7.350-7.450); BG PO2 84.3 mmHg (75.0-100.0); BG SAMPLE SITE LEFT RADIAL; BG TIDAL VOLUME(mL) 500 mL; BG TOTAL HEMOGLOBIN 8.8 g/dL (12.0-18.0); BG VENT MODE VENT - A/C; BG VENT RATE 10 set
[2017-06-25] MEDS ORDERED: POTASSIUM CHLORIDE INJ 40 MEQ in DEXT 5% WATER 500 ML IV NR (09:00)
[2017-06-25] MEDS ORDERED: MORPHINE SULFATE 2 MG/ML CPJ (NOT FOR IM USE) IV PRN (09:45)
[2017-06-25] MEDS: PANTOPRAZOLE SODIUM 40 MG/VIAL IV SCH ×2 (10:19→20:49)
[2017-06-25] MEDS: RISPERIDONE 1MG TABLET PO SCH ×2 (10:19→18:18)
[2017-06-25] MEDS: DOCUSATE SODIUM SUGAR FREE 100MG/10ML UDC NG SCH (10:20)
[2017-06-25] MEDS ORDERED: MAGNESIUM 1 G PREMIX 100 ML IV NR (10:30)
[2017-06-25] MEDS: ENOXAPARIN 40MG/0.4ML SYR SUBCUT SCH (12:34)
[2017-06-25] MEDS: LORAZEPAM 2MG/ML CPJ IV PRN (22:11)
[2017-06-26] VITALS (33 sets, daily range): BP systolic 105–180; BP diastolic 53–117
[2017-06-26] MEDS: METOCLOPRAMIDE 10MG/10 ML UDC NG SCH ×5 (00:01→23:19)
[2017-06-26] MEDS: DIPHENHYDRAMINE 50MG/ML VIAL IV PRN (00:01)
[2017-06-26] MEDS: DILTIAZEM HCL 30MG TABLET PO SCH ×4 (00:02→18:40)
[2017-06-26] MEDS: IPRATROPIUM/ALBUTEROL 0.5-3(2.5)MG/3ML NEB HHN SCH ×4 (04:16→20:04)
[2017-06-26 05:55] LABS: BASOPHILS % 0.7 % (0.0-2.0); EOSINOPHILS % 1.9 % (0.0-5.0); HEMATOCRIT. 25.6 % (36.0-48.0); HEMOGLOBIN. 8.2 g/dL (12.0-16.0); LYMPHOCYTES % 10.7 % (20.0-50.0); MEAN CORPUSCULAR HEMOGLOBIN 28.4 pg (28.0-32.0); MEAN CORPUSCULAR VOLUME 88.4 fL (81.0-99.0); MEAN PLATELET VOLUME 7.9 fl (7.4-10.4); MONOCYTES % 7.8 % (2.0-8.0); NEUTROPHILS % 78.9 % (40.0-76.0); PLATELET 325 x1000/uL (130-400); RED CELL DISTRIBUTION WIDTH 16.6 % (11.6-14.6)
[2017-06-26] MEDS: INSULIN LISPRO 100 UNITS/ML SUBCUT SCH ×4 (06:00→23:20)
[2017-06-26] MEDS: BLOOD SUGAR DIAGNOSTIC STRIP TEST SCH ×3 (06:00→18:27)
[2017-06-26 06:01] LABS: INR 1.1; PARTIAL THROMBOPLASTIN TIME 29.4 sec (23.4-31.0); PROTHROMBIN TIME 11.5 sec (9.4-11.6)
[2017-06-26 06:15] LABS: CHLORIDE 99 mEq/L (98-107)
[2017-06-26 07:49] LABS: BG CARBOXYHEMOGLOBIN 0.4 % (0.5-1.5); BG DEOXYHEMOGLOBIN 4.3 % (0.0-5.0); BG FRACTION INSPIRED OXYGEN 40; BG HCO3 ACT 39.2 mmol/L (22.0-26.0); BG METHEMOGLOBIN 0.4 % (0.0-1.5); BG OXYGEN SATURATION 95.7 % (92.0-98.5); BG OXYHEMOGLOBIN 94.9 % (94.0-97.0); BG PCO2 47.8 mmHg (35.0-45.0); BG PH 7.532 (7.350-7.450); BG PO2 76.6 mmHg (75.0-100.0); BG SAMPLE SITE RIGHT RADIAL; BG TIDAL VOLUME(mL) 500 mL; BG TOTAL HEMOGLOBIN 8.5 g/dL (12.0-18.0); BG VENT MODE VENT - A/C; BG VENT RATE 14 set
[2017-06-26] MEDS ORDERED: DILTIAZEM HCL 5MG/ML 5ML VIAL IV SCH (08:26)
[2017-06-26] MEDS ORDERED: MAGNESIUM 1 G PREMIX 100 ML IV SCH (08:30)
[2017-06-26] MEDS ORDERED: POTASSIUM CHLORIDE 20MEQ/PACKET PO SCH (08:30)
[2017-06-26] MEDS: LORAZEPAM 2MG/ML CPJ IV PRN ×3 (09:02→21:30)
[2017-06-26] MEDS: DOCUSATE SODIUM SUGAR FREE 100MG/10ML UDC NG SCH (09:10)
[2017-06-26] MEDS: PANTOPRAZOLE SODIUM 40 MG/VIAL IV SCH ×2 (09:10→21:30)
[2017-06-26] MEDS: RISPERIDONE 1MG TABLET PO SCH ×2 (09:10→18:40)
[2017-06-26] MEDS ORDERED: KCL 20MEQ/100ML PREMIX 100 ML IV NR (10:30)
[2017-06-26] MEDS ORDERED: LEVOFLOXACIN 500MG PREMIX 100 ML IV NR (12:15)
[2017-06-26] MEDS: ENOXAPARIN 40MG/0.4ML SYR SUBCUT SCH (13:04)
[2017-06-26] MEDS ORDERED: MIDAZOLAM HCL 5 MG/5 ML VIAL ONE (13:35)
[2017-06-26] MEDS ORDERED: FENTANYL CITRATE/PF 50MCG/ML 2ML VIAL ONE (13:35)
[2017-06-26] MEDS ORDERED: MIDAZOLAM HCL 5 MG/5 ML VIAL IV PRN (13:54)
[2017-06-26] MEDS ORDERED: VANCOMYCIN 1 G PREMIX 200 ML IV ONE (14:00)
[2017-06-26] MEDS ORDERED: MAGNESIUM 1 G PREMIX 100 ML IV NR (14:00)
[2017-06-26] MEDS ORDERED: VANCOMYCIN 1,000 MG in DEXT 5% WATER 250 ML IV SCH (14:00)
[2017-06-26] MEDS: IRON SUCROSE COMPLEX 100 MG/5 ML ML IV SCH (14:28)
[2017-06-26] MEDS ORDERED: SODIUM CHLORIDE 0.9% 10ML VIAL ONE (14:38)
[2017-06-26] MEDS ORDERED: SIMETHICONE 40 MG/0.6 ML 30ML ONE (14:38)
[2017-06-26] MEDS: ACETAMINOPHEN 650MG/20.3ML UDC GT PRN (21:30)
[2017-06-26] MEDS: HYDRALAZINE 20MG/ML VIAL IV PRN (22:04)
[2017-06-26] MEDS ORDERED: DILTIAZEM HCL 5MG/ML 5ML VIAL IV NR (23:00)
[2017-06-27] VITALS (33 sets, daily range): BP systolic 109–162; BP diastolic 55–104
[2017-06-27] MEDS: DILTIAZEM HCL 125 MG in DEXT 5% WATER 100 ML IV PRN ×2 (00:02→12:33)
[2017-06-27] MEDS: MORPHINE SULFATE 4 MG/ML CPJ (NOT FOR IM USE) IV PRN ×2 (04:17→19:44)
[2017-06-27 05:36] LABS: BASOPHILS % 0.8 % (0.0-2.0); EOSINOPHILS % 1.3 % (0.0-5.0); HEMATOCRIT. 25.3 % (36.0-48.0); HEMOGLOBIN. 8.4 g/dL (12.0-16.0); MEAN PLATELET VOLUME 7.5 fl (7.4-10.4); NEUTROPHILS % 78.9 % (40.0-76.0); PLATELET 300 x1000/uL (130-400); RED CELL DISTRIBUTION WIDTH 16.1 % (11.6-14.6)
[2017-06-27] MEDS: INSULIN LISPRO 100 UNITS/ML SUBCUT SCH ×3 (05:49→18:00)
[2017-06-27] MEDS: METOCLOPRAMIDE 10MG/10 ML UDC NG SCH ×3 (05:49→18:34)
[2017-06-27] MEDS: BLOOD SUGAR DIAGNOSTIC STRIP TEST SCH ×4 (05:49→18:10)
[2017-06-27 06:08] LABS: CHLORIDE 98 mEq/L (98-107)
[2017-06-27] MEDS: LORAZEPAM 2MG/ML CPJ IV PRN (08:22)
[2017-06-27 08:45] LABS: BG BASE EXCESS 13.6 mmol/L (-2.0-2.0); BG CARBOXYHEMOGLOBIN 0.9 % (0.5-1.5); BG DEOXYHEMOGLOBIN 2.9 % (0.0-5.0); BG FRACTION INSPIRED OXYGEN 40; BG HCO3 ACT 38.3 mmol/L (22.0-26.0); BG METHEMOGLOBIN 0.5 % (0.0-1.5); BG OXYGEN SATURATION 97.1 % (92.0-98.5); BG OXYHEMOGLOBIN 95.7 % (94.0-97.0); BG PCO2 50.3 mmHg (35.0-45.0); BG PO2 89.4 mmHg (75.0-100.0); BG SAMPLE SITE RIGHT BRACHIAL; BG TIDAL VOLUME(mL) 500 mL; BG TOTAL HEMOGLOBIN 9.2 g/dL (12.0-18.0); BG VENT MODE VENT - A/C; BG VENT RATE 14 set
[2017-06-27] MEDS ORDERED: KCL 20MEQ/100ML PREMIX 100 ML IV NR ×2 (09:00→10:00)
[2017-06-27] MEDS: IPRATROPIUM/ALBUTEROL 0.5-3(2.5)MG/3ML NEB HHN SCH (09:14)
[2017-06-27] MEDS ORDERED: POTASSIUM CHLORIDE 20MEQ TABLET SR PO NR (09:30)
[2017-06-27] MEDS: DOCUSATE SODIUM SUGAR FREE 100MG/10ML UDC NG SCH (09:55)
[2017-06-27] MEDS: PANTOPRAZOLE SODIUM 40 MG/VIAL IV SCH ×2 (09:55→20:53)
[2017-06-27] MEDS: IRON SUCROSE COMPLEX 100 MG/5 ML ML IV SCH (09:55)
[2017-06-27] MEDS: RISPERIDONE 1MG TABLET PO SCH ×2 (09:55→18:34)
[2017-06-27] MEDS ORDERED: IPRATROPIUM BROMIDE (0.02%) 0.5MG/2.5ML NEB HHN PRN (11:15)
[2017-06-27] MEDS: ACETAMINOPHEN 650MG/20.3ML UDC GT PRN (11:57)
[2017-06-27] MEDS ORDERED: KCL 20MEQ/100ML PREMIX 100 ML IV SCH (12:00)
[2017-06-27] MEDS: DILTIAZEM HCL 60MG TABLET PO SCH ×2 (13:00→18:35)
[2017-06-27] MEDS: ENOXAPARIN 40MG/0.4ML SYR SUBCUT SCH (13:00)
[2017-06-27] MEDS: IPRATROPIUM BROMIDE (0.02%) 0.5MG/2.5ML NEB HHN SCH ×2 (17:13→20:24)
[2017-06-27] MEDS: QUETIAPINE FUMARATE 25MG TABLET PO SCH (20:54)
[2017-06-28] VITALS (32 sets, daily range): BP systolic 99–172; BP diastolic 54–93
[2017-06-28] MEDS: IPRATROPIUM BROMIDE (0.02%) 0.5MG/2.5ML NEB HHN SCH ×8 (00:26→23:44)
[2017-06-28] MEDS: METOCLOPRAMIDE 10MG/10 ML UDC NG SCH ×4 (00:40→18:00)
[2017-06-28] MEDS: DILTIAZEM HCL 60MG TABLET PO SCH ×2 (00:40→05:41)
[2017-06-28] MEDS: BLOOD SUGAR DIAGNOSTIC STRIP TEST SCH ×4 (00:43→18:50)
[2017-06-28] MEDS: DILTIAZEM HCL 125 MG in DEXT 5% WATER 100 ML IV PRN (00:47)
[2017-06-28] MEDS: LORAZEPAM 2MG/ML CPJ IV PRN ×5 (02:55→19:56)
[2017-06-28] MEDS: INSULIN LISPRO 100 UNITS/ML SUBCUT SCH ×4 (05:45→18:00)
[2017-06-28 06:16] LABS: BASOPHILS % 0.8 % (0.0-2.0); LYMPHOCYTES % 11.6 % (20.0-50.0); MEAN CORPUSCULAR HEMOGLOBIN 28.1 pg (28.0-32.0); MEAN CORPUSCULAR VOLUME 87.7 fL (81.0-99.0); MEAN PLATELET VOLUME 7.9 fl (7.4-10.4); MONOCYTES % 8.1 % (2.0-8.0); NEUTROPHILS % 77.5 % (40.0-76.0); PLATELET 299 x1000/uL (130-400); RED BLOOD CELL COUNT 2.85 mill/uL (4.2-5.4); RED CELL DISTRIBUTION WIDTH 16.5 % (11.6-14.6)
[2017-06-28 06:28] LABS: CHLORIDE 98 mEq/L (98-107)
[2017-06-28 08:01] LABS: BG BASE EXCESS 7.7 mmol/L (-2.0-2.0); BG CARBOXYHEMOGLOBIN 0.6 % (0.5-1.5); BG DEOXYHEMOGLOBIN 2.4 % (0.0-5.0); BG FRACTION INSPIRED OXYGEN 40; BG METHEMOGLOBIN 0.3 % (0.0-1.5); BG OXYGEN SATURATION 97.6 % (92.0-98.5); BG OXYHEMOGLOBIN 96.7 % (94.0-97.0); BG PCO2 43.9 mmHg (35.0-45.0); BG PO2 102.1 mmHg (75.0-100.0); BG SAMPLE SITE LEFT BRACHIAL; BG TIDAL VOLUME(mL) 500 mL; BG TOTAL HEMOGLOBIN 9.1 g/dL (12.0-18.0); BG VENT MODE VENT - A/C; BG VENT RATE 16 set
[2017-06-28] MEDS: RISPERIDONE 1MG TABLET PO SCH ×2 (09:29→17:00)
[2017-06-28] MEDS: DOCUSATE SODIUM SUGAR FREE 100MG/10ML UDC NG SCH (09:29)
[2017-06-28] MEDS: PANTOPRAZOLE SODIUM 40 MG/VIAL IV SCH ×2 (09:29→22:06)
[2017-06-28] MEDS: QUETIAPINE FUMARATE 25MG TABLET PO SCH ×2 (09:29→22:02)
[2017-06-28] MEDS: IRON SUCROSE COMPLEX 100 MG/5 ML ML IV SCH (09:29)
[2017-06-28] MEDS: DILTIAZEM HCL 90MG TABLET PEG SCH ×2 (12:00→18:00)
[2017-06-28] MEDS: ENOXAPARIN 40MG/0.4ML SYR SUBCUT SCH (12:49)
[2017-06-28] MEDS ORDERED: POTASSIUM CHLORIDE 20MEQ/PACKET PO SCH (19:30)
[2017-06-29] VITALS (36 sets, daily range): BP systolic 86–161; BP diastolic 50–130
[2017-06-29] MEDS: BLOOD SUGAR DIAGNOSTIC STRIP TEST SCH ×4 (00:48→18:43)
[2017-06-29] MEDS: METOCLOPRAMIDE 10MG/10 ML UDC NG SCH ×4 (00:49→18:46)
[2017-06-29] MEDS: LORAZEPAM 2MG/ML CPJ IV PRN ×3 (02:27→16:03)
[2017-06-29] MEDS ORDERED: POTASSIUM CHLORIDE 20MEQ/PACKET PO SCH (02:45)
[2017-06-29] MEDS: IPRATROPIUM BROMIDE (0.02%) 0.5MG/2.5ML NEB HHN SCH ×5 (04:05→21:01)
[2017-06-29] MEDS: DILTIAZEM HCL 90MG TABLET PEG SCH ×4 (06:15→18:46)
[2017-06-29] MEDS: INSULIN LISPRO 100 UNITS/ML SUBCUT SCH ×4 (06:16→18:00)
[2017-06-29 08:20] LABS: CHLORIDE 100 mEq/L (98-107)
[2017-06-29 08:22] LABS: BG BASE EXCESS 11.6 mmol/L (-2.0-2.0); BG CARBOXYHEMOGLOBIN 0.7 % (0.5-1.5); BG DEOXYHEMOGLOBIN 2.8 % (0.0-5.0); BG FRACTION INSPIRED OXYGEN 40; BG HCO3 ACT 36.4 mmol/L (22.0-26.0); BG OXYGEN SATURATION 97.2 % (92.0-98.5); BG OXYHEMOGLOBIN 96.5 % (94.0-97.0); BG PCO2 49.8 mmHg (35.0-45.0); BG PH 7.482 (7.350-7.450); BG PO2 90.7 mmHg (75.0-100.0); BG SAMPLE SITE LEFT RADIAL; BG TIDAL VOLUME(mL) 500 mL; BG TOTAL HEMOGLOBIN 8.8 g/dL (12.0-18.0); BG VENT MODE VENT - A/C; BG VENT RATE 16 set
[2017-06-29] MEDS: PANTOPRAZOLE SODIUM 40 MG/VIAL IV SCH ×2 (09:38→21:10)
[2017-06-29] MEDS: QUETIAPINE FUMARATE 25MG TABLET PO SCH ×2 (09:38→21:10)
[2017-06-29] MEDS: DOCUSATE SODIUM SUGAR FREE 100MG/10ML UDC NG SCH (09:38)
[2017-06-29] MEDS: RISPERIDONE 1MG TABLET PO SCH ×2 (09:38→18:46)
[2017-06-29] MEDS: METOPROLOL TARTRATE 25MG TABLET GT SCH ×2 (14:48→21:12)
[2017-06-29] MEDS: ENOXAPARIN 40MG/0.4ML SYR SUBCUT SCH (14:49)
[2017-06-29] MEDS: MORPHINE SULFATE 4 MG/ML CPJ (NOT FOR IM USE) IV PRN (16:02)
[2017-06-29] MEDS: ACETAMINOPHEN 650MG/20.3ML UDC GT PRN (21:21)
[2017-06-30] VITALS (38 sets, daily range): BP systolic 102–172; BP diastolic 49–112
[2017-06-30] MEDS: BLOOD SUGAR DIAGNOSTIC STRIP TEST SCH ×4 (00:19→18:50)
[2017-06-30] MEDS: DILTIAZEM HCL 90MG TABLET PEG SCH ×4 (00:24→19:18)
[2017-06-30] MEDS: METOCLOPRAMIDE 10MG/10 ML UDC NG SCH ×4 (00:24→19:17)
[2017-06-30] MEDS: INSULIN LISPRO 100 UNITS/ML SUBCUT SCH ×4 (00:26→18:00)
[2017-06-30] MEDS: IPRATROPIUM BROMIDE (0.02%) 0.5MG/2.5ML NEB HHN SCH ×6 (01:03→23:52)
[2017-06-30] MEDS: MORPHINE SULFATE 4 MG/ML CPJ (NOT FOR IM USE) IV PRN ×3 (02:46→23:31)
[2017-06-30 04:48] LABS: HEMATOCRIT 27.1 % (36.0-48.0); HEMOGLOBIN 8.6 g/dL (12.0-16.0); MEAN CORPUSCULAR HEMOGLOBIN 27.9 pg (28.0-32.0); MEAN CORPUSCULAR VOLUME 87.9 fL (81.0-99.0); PLATELET 311 x1000/uL (130-400); RED BLOOD CELL COUNT 3.08 mill/uL (4.2-5.4); RED CELL DISTRIBUTION WIDTH 16.1 % (11.6-14.6)
[2017-06-30 05:04] LABS: CHLORIDE 99 mEq/L (98-107)
[2017-06-30 08:53] LABS: BG BASE EXCESS 9.4 mmol/L (-2.0-2.0); BG CARBOXYHEMOGLOBIN 0.6 % (0.5-1.5); BG FRACTION INSPIRED OXYGEN 40; BG HCO3 ACT 33.9 mmol/L (22.0-26.0); BG METHEMOGLOBIN 0.3 % (0.0-1.5); BG OXYHEMOGLOBIN 96.1 % (94.0-97.0); BG PCO2 46.4 mmHg (35.0-45.0); BG PH 7.482 (7.350-7.450); BG PO2 91.8 mmHg (75.0-100.0); BG SAMPLE SITE RIGHT BRACHIAL; BG TIDAL VOLUME(mL) 500 mL; BG TOTAL HEMOGLOBIN 9.2 g/dL (12.0-18.0); BG VENT MODE VENT - A/C; BG VENT RATE 16 set
[2017-06-30] MEDS: LOSARTAN POTASSIUM 25 MG TABLET PO SCH ×2 (10:00→21:00)
[2017-06-30] MEDS ORDERED: POTASSIUM CHLORIDE 20MEQ TABLET SR PO NR (10:00)
[2017-06-30 10:25] LABS: PHOSPHORUS 3.3 mg/dL (2.5-4.9)
[2017-06-30] MEDS ORDERED: LORAZEPAM 2MG/ML CPJ IM PRN (10:30)
[2017-06-30] MEDS ORDERED: LORAZEPAM 2MG/ML CPJ IV PRN ×2 (10:45)
[2017-06-30] MEDS: RISPERIDONE 1MG TABLET PO SCH (11:02)
[2017-06-30] MEDS: QUETIAPINE FUMARATE 25MG TABLET PO SCH (11:03)
[2017-06-30] MEDS: BISACODYL 10MG SUPP PR SCH (11:03)
[2017-06-30] MEDS: METOPROLOL TARTRATE 25MG TABLET GT SCH ×2 (11:03→21:00)
[2017-06-30] MEDS: PANTOPRAZOLE SODIUM 40 MG/VIAL IV SCH (11:04)
[2017-06-30] MEDS: DOCUSATE SODIUM SUGAR FREE 100MG/10ML UDC NG SCH (11:04)
[2017-06-30] MEDS: ENOXAPARIN 40MG/0.4ML SYR SUBCUT SCH (13:42)
[2017-06-30] MEDS: LORAZEPAM 2MG/ML CPJ IV PRN ×2 (19:17→23:49)
[2017-06-30] MEDS ORDERED: FAMOTIDINE 20MG TABLET PO SCH (21:00)
[2017-06-30] MEDS: QUETIAPINE FUMARATE 50MG TABLET PO SCH (21:00)
[2017-07-01] VITALS (25 sets, daily range): BP systolic 84–148; BP diastolic 40–77
[2017-07-01] MEDS: BLOOD SUGAR DIAGNOSTIC STRIP TEST SCH ×3 (00:03→11:55)
[2017-07-01] MEDS: METOCLOPRAMIDE 10MG/10 ML UDC NG SCH ×3 (00:10→11:54)
[2017-07-01] MEDS: IPRATROPIUM BROMIDE (0.02%) 0.5MG/2.5ML NEB HHN SCH ×2 (02:59→08:31)
[2017-07-01] MEDS: LORAZEPAM 2MG/ML CPJ IV PRN (04:16)
[2017-07-01] MEDS: INSULIN LISPRO 100 UNITS/ML SUBCUT SCH ×2 (05:48)
[2017-07-01] MEDS: DILTIAZEM HCL 90MG TABLET PEG SCH ×3 (05:48→11:54)
[2017-07-01 05:58] LABS: EOSINOPHILS % 2.2 % (0.0-5.0); HEMATOCRIT. 22.7 % (36.0-48.0); HEMOGLOBIN. 7.3 g/dL (12.0-16.0); LYMPHOCYTES % 17.4 % (20.0-50.0); MEAN CORPUSCULAR HEMOGLOBIN 28.7 pg (28.0-32.0); MEAN CORPUSCULAR VOLUME 89.1 fL (81.0-99.0); MEAN PLATELET VOLUME 7.9 fl (7.4-10.4); MONOCYTES % 12.3 % (2.0-8.0); NEUTROPHILS % 67.1 % (40.0-76.0); PLATELET 258 x1000/uL (130-400); RED BLOOD CELL COUNT 2.55 mill/uL (4.2-5.4)
[2017-07-01 06:38] LABS: CHLORIDE 101 mEq/L (98-107)
[2017-07-01 07:24] LABS: BG BASE EXCESS 10.4 mmol/L (-2.0-2.0); BG CARBOXYHEMOGLOBIN 0.2 % (0.5-1.5); BG HCO3 ACT 34.7 mmol/L (22.0-26.0); BG METHEMOGLOBIN 0.4 % (0.0-1.5); BG OXYHEMOGLOBIN 97.4 % (94.0-97.0); BG PCO2 45.9 mmHg (35.0-45.0); BG PH 7.497 (7.350-7.450); BG PO2 109.8 mmHg (75.0-100.0); BG SAMPLE SITE LEFT BRACHIAL; BG TIDAL VOLUME(mL) 500 mL; BG TOTAL HEMOGLOBIN 8.8 g/dL (12.0-18.0); BG VENT MODE VENT - A/C; BG VENT RATE 16 set
[2017-07-01] MEDS: BISACODYL 10MG SUPP PR SCH (09:00)
[2017-07-01] MEDS: LOSARTAN POTASSIUM 25 MG TABLET PO SCH (09:17)
[2017-07-01] MEDS: QUETIAPINE FUMARATE 50MG TABLET PO SCH (09:17)
[2017-07-01] MEDS: DOCUSATE SODIUM SUGAR FREE 100MG/10ML UDC NG SCH (09:18)
[2017-07-01] MEDS: METOPROLOL TARTRATE 25MG TABLET GT SCH (09:18)
[2017-07-01] MEDS ORDERED: POTASSIUM CHLORIDE INJ 40 MEQ in SODIUM CHLORIDE 0.9% 250 ML IV SCH (10:00)
[2017-07-01] MEDS: ENOXAPARIN 40MG/0.4ML SYR SUBCUT SCH (11:57)
[2017-07-01] MEDS: ACETAMINOPHEN 650MG/20.3ML UDC GT PRN (12:03)
== END 2017-07-01 12:50 | disposition short-term general hospital (02) | DRG 3 ==
LOC: ER 19:03 → CVICU 21:44 → EDBEDREQTM 21:51 → SUPCPDRO 21:51 → EDBEDREQSVC 21:51 → EDBEDREQ 21:51 → ENRESERV 23:05
PROVIDERS: ADMIT Internal Medicine; ATTEND Internal Medicine
PROC: 5A1955Z Respiratory Ventilation, Greater than 96 Consecutive Hours (ICD-10-PCS; principal; 2017-06-04)
PROC: 0BH17EZ Insertion of Endotracheal Airway into Trachea, Via Natural or Artificial Opening (ICD-10-PCS; 2017-06-04)
PROC: 0QH736Z Insertion of Intramedullary Internal Fixation Device into Left Upper Femur, Percutaneous Approach (ICD-10-PCS; 2017-06-09)
PROC: 30233N1 Transfusion of Nonautologous Red Blood Cells into Peripheral Vein, Percutaneous Approach (ICD-10-PCS; 2017-06-09)
PROC: 05HM33Z Insertion of Infusion Device into Right Internal Jugular Vein, Percutaneous Approach (ICD-10-PCS; 2017-06-10)
PROC: B543ZZA Ultrasonography of Right Jugular Veins, Guidance (ICD-10-PCS; 2017-06-10)
PROC: 0B110F4 Bypass Trachea to Cutaneous with Tracheostomy Device, Open Approach (ICD-10-PCS; 2017-06-19)
PROC: 0GBJ0ZZ Excision of Thyroid Gland Isthmus, Open Approach (ICD-10-PCS; 2017-06-19)
PROC: 0BJ08ZZ Inspection of Tracheobronchial Tree, Via Natural or Artificial Opening Endoscopic (ICD-10-PCS; 2017-06-19)
PROC: 0DH64UZ Insertion of Feeding Device into Stomach, Percutaneous Endoscopic Approach (ICD-10-PCS; 2017-06-26)
DX: A41.50 Gram-negative sepsis, unspecified (principal); I63.512 Cerebral infarction due to unspecified occlusion or stenosis of left middle cerebral artery; J69.0 Pneumonitis due to inhalation of food and vomit; G93.40 Encephalopathy, unspecified; N17.9 Acute kidney failure, unspecified; K85.90 Acute pancreatitis without necrosis or infection, unspecified; E46 Unspecified protein-calorie malnutrition; J96.01 Acute respiratory failure with hypoxia; J96.02 Acute respiratory failure with hypercapnia; S72.302A Unspecified fracture of shaft of left femur, initial encounter for closed fracture; J44.1 Chronic obstructive pulmonary disease with (acute) exacerbation; B37.0 Candidal stomatitis; D62 Acute posthemorrhagic anemia; I31.3 Pericardial effusion (noninflammatory); I47.1 Supraventricular tachycardia; K56.7 Ileus, unspecified; N39.0 Urinary tract infection, site not specified; W18.30XA Fall on same level, unspecified, initial encounter; B96.20 Unspecified Escherichia coli [E. coli] as the cause of diseases classified elsewhere; E11.22 Type 2 diabetes mellitus with diabetic chronic kidney disease; E11.36 Type 2 diabetes mellitus with diabetic cataract; E11.649 Type 2 diabetes mellitus with hypoglycemia without coma; E83.42 Hypomagnesemia; E87.6 Hypokalemia; H40.9 Unspecified glaucoma; I48.0 Paroxysmal atrial fibrillation; I49.1 Atrial premature depolarization; I49.3 Ventricular premature depolarization; K80.20 Calculus of gallbladder without cholecystitis without obstruction; K82.8 Other specified diseases of gallbladder; M47.816 Spondylosis without myelopathy or radiculopathy, lumbar region; I11.9 Hypertensive heart disease without heart failure; R13.10 Dysphagia, unspecified; Z16.12 Extended spectrum beta lactamase (ESBL) resistance; Y93.89 Activity, other specified; Y92.89 Other specified places as the place of occurrence of the external cause; Y99.8 Other external cause status; Z22.322 Carrier or suspected carrier of Methicillin resistant Staphylococcus aureus; Z79.899 Other long term (current) drug therapy; Z79.4 Long term (current) use of insulin; Z86.79 Personal history of other diseases of the circulatory system; Z87.891 Personal history of nicotine dependence; Z88.2 Allergy status to sulfonamides; Z90.49 Acquired absence of other specified parts of digestive tract; Z99.81 Dependence on supplemental oxygen; Z88.6 Allergy status to analgesic agent; Z88.0 Allergy status to penicillin; Z68.20 Body mass index [BMI] 20.0-20.9, adult
CPT/HCPCS: 36415; 36569; 36600; 70450; 70544; 70553; 71045; 71275; 72170; 72191; 73552; 73706; 74018; 74181; 75774; 75898; 76700; 76857; 76937; 80048; 80053; 80061; 80076; 80150; 80202; 80305; 80307; 80329; 81001; 82140; 82248; 82270; 82375; 82550; 82553; 82607; 82746; 82805; 82962; 83036; 83540; 83550; 83605; 83690; 83735; 83880; 83930; 84100; 84132; 84134; 84439; 84443; 84478; 84481; 84484; 85014; 85018; 85025; 85027; 85379; 85610; 85730; 86850; 86870; 86900; 86920; 87040; 87070; 87077; 87086; 87186; 87804; 93005; 93306; 93880; 93970; 93971; 94002; 94003; 94640; 94660; 96374; 96375; 97167; 99291; A4216; A6261; C1713; C1725; C1730; C1760; C1766; C1769; C9113; G0482; J0278; J0330; J0360; J1200; J1644; J1650; J1815; J1956; J2060; J2185; J2250; J2270; J2310; J2405; J2704; J2930; J3010; J3370; J3475; J3480; J3490; J7030; J7040; J7050; J7060; J7070; J7608; J7620; J7626; J8597; P9016; P9041; Q9967; A4315